=== PATIENT | female | born 1995 | race Caucasian/White ===

== ENCOUNTER → 2018-09-24 | Outpatient (CLI) | payer BC, SELFPAY ==
[2018-09-27 12:07] LABS: Alternaria alternata <0.10 kU/L (Class 0); Aspergillus fumigatus <0.10 kU/L (Class 0); Bahia Grass <0.10 kU/L (Class 0); Bermuda Grass <0.10 kU/L (Class 0); Bluegrass, Kentucky <0.10 kU/L (Class 0); Cat Hair/Dander, Standard <0.10 kU/L (Class 0); Cedar, Mountain <0.10 kU/L (Class 0); Cladosporium herbarum <0.10 kU/L (Class 0); Cockroach, American <0.10 kU/L (Class 0); D farinae Mite <0.10 kU/L (Class 0); D pteronyssinus <0.10 kU/L (Class 0); Dog Epithelia <0.10 kU/L (Class 0); Elm, American White <0.10 kU/L (Class 0); Hazelnut Tree <0.10 kU/L (Class 0); Hickory, White <0.10 kU/L (Class 0); Johnson Grass <0.10 kU/L (Class 0); Maple/Box Elder <0.10 kU/L (Class 0); Mucor racemosus <0.10 kU/L (Class 0); Mugwort <0.10 kU/L (Class 0); Mulberry, White <0.10 kU/L (Class 0); Oak, White <0.10 kU/L (Class 0); Penicillium chrysogen <0.10 kU/L (Class 0); Pigweed, Rough <0.10 kU/L (Class 0); Plantain, English <0.10 kU/L (Class 0); Ragweed, Short/Common <0.10 kU/L (Class 0); Sheep Sorrel(Dock) <0.10 kU/L (Class 0); Stemphylium herbarum <0.10 kU/L (Class 0); Sweet Gum <0.10 kU/L (Class 0); Sycamore, American <0.10 kU/L (Class 0)
[2018-09-27 13:33] LABS: Nettle <0.10 kU/L (Class 0)
== END | disposition home or self-care (01) ==
PROVIDERS: Family Provider Family Medicine; PCP Family Medicine; Referring Provider Internal Medicine Pulmonary Disease; Visit Provider Internal Medicine Pulmonary Disease
DX: J45.909 Unspecified asthma, uncomplicated (principal); R05 Cough
CPT/HCPCS: 36415; 86003

== ENCOUNTER → 2019-01-23 | Outpatient (CLI) | payer BC, SELFPAY ==
[2015-10-06 17:39] VITALS: BMI 24.3
[2019-01-23 16:17] LABS: Erythrocyte Sedimentation Rate 8 mm/hr (0-20)
[2019-01-26 20:14] LABS: Angiotensin Convert Enzyme 59 U/L (14-82)
== END | disposition home or self-care (01) ==
LOC: MTLAB 14:47
PROVIDERS: Family Provider Family Medicine; PCP Family Medicine; Referring Provider Internal Medicine Pulmonary Disease; Visit Provider Internal Medicine Pulmonary Disease
DX: R05 Cough (principal)
CPT/HCPCS: 36415; 82164; 85652

== ENCOUNTER → 2019-04-17 13:13 | Outpatient (CLI) | payer OTHER, SELFPAY ==
[2015-10-06 17:39] VITALS: BMI 24.3
== END ==
LOC: LABSPEC 13:15
PROVIDERS: PCP Family Medicine; Referring Provider Internal Medicine Pulmonary Disease; Visit Provider Internal Medicine Pulmonary Disease
DX: R04.2 Hemoptysis (principal)
CPT/HCPCS: 87070; 87205

== ENCOUNTER 2019-04-22 11:12 | Day surgery (SDC) | payer OTHER, SELFPAY ==
[2019-04-22] VITALS (8 sets, daily range): BP systolic 117–150; BP diastolic 69–96; PULSE 59–99; RESP 16; TEMP 36.3–36.7; O2SAT 95–100; BMI 28.6
--- NOTE | 2019-04-22 | LUNG_PTH ---
PATIENT: KASSIE HOLMAN LOC: EN U#:[id number] AGE/SX: 23/F ROOM: RE04/22/[address]: Dr. Marc Tabor MD : 1995 BED: DIS: 04/22/2019 SPEC #: [id number] RECD: 04/22/19 15:03 STATUS: DARLENE KAYLA #: [id number] LYLA: 04/22/19 00:[address]: Marc Tabor V DEPT: SURGICAL PATHOLOGY RECD BY: Sanjay Orlando ENTERED: 04/22/19 15:04 SP TYPE: LUNG BX OTHR DR: Dr. Maximo Steiner, DO Tissues: A - Bronchus of right lower lobe B - Bronchus of left upper lobe C - Lung, NOS D - Bronchus of left upper lobe Procedures: Surgery Specimen Level IV HEADER OPERATION: Bronchoscopy PRE-OP DIAGNOSIS: Cough, hemoptysis TISSUE SUBMITTED: A - RLL, B - RUL, C - Jenniffer, D - KANDY MICROSCOPIC DIAGNOSIS A. Right lower lobe of lung, biopsy: Fragments of bronchial and sub-bronchial tissue with minimal chronic inflammation. B. Right upper lobe of lung, biopsy: Fragments of bronchial and sub-bronchial tissue with minimal chronic inflammation. C. Jenniffer, biopsy: Fragments of benign squamous and respiratory epithelium and subepithelial tissue. D. Left upper lobe of lung, biopsy: Scant fragments of benign bronchial and sub-bronchial tissue. AM:neeru 04/23/19 COMMENT Please see corresponding cytology specimen ([id number]). MICROSCOPIC DESCRIPTION Slides are reviewed. GROSS DESCRIPTION A - Received in fixative is one container labeled with the patient's name and designated right lower lobe biopsy. The specimen consists of multiple irregular fragments of light cohen soft tissue that in aggregate measure 0.2 x 0.1 x <0.1 cm. The specimen is totally submitted in one cassette. B - Received in fixative is one container labeled with the patient's name and designated right upper lobe biopsy. The specimen consists of multiple irregular fragments of light cohen soft tissue that in aggregate measure 0.1 x 0.1 x <0.1 cm. The specimen is totally submitted in one cassette. C - Received in fixative is one container labeled with the patient's name and designated jenniffer biopsy. The specimen consists of one irregular fragment of light cohen soft tissue that measures 0.6 x 0.2 x <0.1 cm. The specimen is totally submitted in one cassette. D - Received in fixative is one container labeled with the patient's name and designated left lobe biopsy. The specimen consists of multiple irregular fragments of light cohen soft tissue that in aggregate measure 0.2 x 0.1 x <0.1 cm. The specimen is totally submitted in one cassette. / AM:neeru 04/22/19 TC:5 CPT: 45062 x4
--- NOTE | 2019-04-22 | FLU_PTH ---
PATIENT: KASSIE HOLMAN LOC: EN U#:[id number] AGE/SX: 23/ ROOM: RE04/22/[address]: Dr. Marc Tabor MD : 1995 BED: DIS: 04/22/2019 SPEC #: [id number] RECD: 04/22/19 15:03 STATUS: DARLENE KAYLA #: [id number] LYLA: 04/22/19 00:[address]: Marc Tabor V DEPT: CYTOLOGY RECD BY: Sanjay Orlando ENTERED: 04/22/19 15:03 SP TYPE: Fluid OTHR DR: Dr. Maximo Steiner DO Tissues: Lung, NOS Procedures: Special Stain Group II Surgery Specimen Level IV Cytospin Fluid HEADER OPERATION: Bronchoscopy (MAC) PRE-OP DIAGNOSIS: Cough, hemoptysis TISSUE SUBMITTED: BAL RUL DIAGNOSIS CYTOLOGY Bronchioalveolar lavage, right upper lobe of lung (cytospin and cell block): Negative for malignant cells. AM:neeru 04/23/19 COMMENT Please see corresponding surgical specimen ([id number]). CYTOLOGY STUDY Slides are reviewed. CYTOLOGY GROSS Received is 25 ml of red cloudy fluid labeled with the patient's name and and designated per the requisition as BAL RUL. Submitted for cytology preparation including cell block. / neeru 04/22/19 TC:5 CPT: 27036, 70000 ADDENDUM ADDENDUM ADDENDUM ADDENDUM ADDENDUM ADDENDUM ADDENDUM ADDENDUM ADDENDUM ADDENDUM 05/18/2019 10:01 ADDENDUM 05/18/2019 10:01 ADDENDUM 05/18/2019 10:01 ADDENDUM 05/18/2019 10:01 ADDENDUM 05/18/2019 10:01 This addendum is added to incorporate an outside pathology consultation report. The case was examined at [facility] (#[id number]) and the following diagnosis was rendered. Lung, right upper lobe, bronchoalveolar lavage: Negative for malignant cells. Please see complete above mentioned consultation report in EMR
[2019-04-22 11:40] LABS: Internal QC Validated? YES +Cl - CLEAR BKGD; Pregnancy, Urine Negative Negative
[2019-04-22] MEDS: Lactated Ringers 1,000 ML 100 ML IV (11:51)
--- NOTE | 2019-04-22 13:21 | OP.BRONCH_ITS ---
Patient Name: Rosy Quintana Procedure Date: 04/22/2019 12:24 PM Date of : 1995 Age: 23 Procedure: Bronchoscopy Indications: Hemoptysis Providers: Marc Tabor MD Referring MD: Maximo Steiner Medicines: Lidocaine 2% Nebulizer 2.5 mL, Lidocaine applied to nares and subglottic space Complications: No immediate complications Procedure: Pre-Anesthesia Assessment: - Pre-procedure physical examination revealed no contraindications to sedation. - ASA Grade Assessment: II - A patient with mild systemic disease. After I obtained informed consent, the scope was passed under direct vision. Throughout the procedure, the patient's blood pressure, pulse, and oxygen saturations were monitored continuously. The bronchoscope was introduced through the right nostril and advanced to the tracheobronchial tree of both lungs. Moderate Sedation: An independent trained observer was present and continuously monitored the patient. An independent trained observer was present and continuously monitored the patient. Findings: Bilateral Lung Abnormalities: Vascular mucosa was found throughout the tracheobronchial tree. Bronchoalveolar lavage was performed in the RUL anterior segment (B3) of the lung and sent for cell count and differential, bacterial, AFB and fungal analysis and aerobic culture. 80 mL of fluid were instilled. 30 mL were returned. The return was blood-tinged. Multiple specimens were obtained, and each sent for analysis. Endobronchial biopsies of a lesion were performed at the ignacia, in the right lower lobe, in the anterior segment of the right upper lobe and in the inferior lingula segment of the left upper lobe using a forceps and sent for histopathology examination. Five samples were obtained. Impression: - Hemoptysis - Vascular mucosa was visualized throughout the tracheobronchial tree. - Bronchoalveolar lavage was performed. - An endobronchial biopsy was performed. - The airway examination was normal. Recommendation: - Await test results. Procedure Code(s): --- Professional --- 38998, Bronchoscopy, rigid or flexible, including fluoroscopic guidance, when performed; with bronchial or endobronchial biopsy(s), single or multiple sites 12543, Bronchoscopy, rigid or flexible, including fluoroscopic guidance, when performed; with bronchial alveolar lavage Diagnosis Code(s): --- Professional --- R04.2, Hemoptysis CPT copyright 2017 [employer]. All rights reserved. The codes documented in this report are preliminary and upon medical laboratory manager review may be revised to meet current compliance requirements. MD Marc Nur MD 04/22/2019 1:21:01 PM This report has been signed electronically. Number of Addenda: 0 Note Initiated On: 04/22/2019 12:24 PM
[2019-04-22 13:29] LABS: Cytology, Body Fluid / CSF SEE PATHOLOGY REPORT
[2019-04-22 14:10] LABS: Source- Body Fluid BRONCHIAL LAVAGE
[2019-04-22 14:11] LABS: Appearance/Body Fluid SL CLDY; Color/Body Fluid COLORLESS
[2019-04-22 14:13] LABS: Red Cell Count/Body Fluid 1985 /mm3; White Blood Count/Body Fluid 25 /mm3
[2019-04-22 15:22] LABS: Macrophages 100 %
[2019-04-23 14:23] LABS: Pathologist Comment/Body Fluid Reviewed
== END 2019-04-22 15:11 | disposition home or self-care (01) ==
LOC: EN 11:12 → AC 11:14
PROVIDERS: Anesthesiology; PCP Family Medicine; Referring Provider Family Medicine; Visit Provider Internal Medicine Pulmonary Disease
PROC: 0BJ08ZZ Inspection of Tracheobronchial Tree, Via Natural or Artificial Opening Endoscopic (ICD-10-PCS; CPT 31622; principal; 2019-04-22 12:00)
DX: R04.2 Hemoptysis (principal); K21.9 Gastro-esophageal reflux disease without esophagitis; E04.1 Nontoxic single thyroid nodule; J45.901 Unspecified asthma with (acute) exacerbation; J30.89 Other allergic rhinitis; R91.8 Other nonspecific abnormal finding of lung field
CPT/HCPCS: 31624; 31625; 81025; 87015; 87070; 87116; 87205; 87206; 88108; 88305; 88313; 89050; J7120; J2405

== ENCOUNTER → 2020-04-21 13:54 | Outpatient (CLI) | payer OTHER, SELFPAY ==
[2019-04-22 11:41] VITALS: BMI 28.6
[2020-04-21 14:00] VITALS: BP 115/68; PULSE 82; RESP 16; TEMP 36.2; O2SAT 100; BMI 28.3
[2020-04-21] MEDS: Dextrose 5%-Lactated Ringers 1,000 ML 999 ML IV (14:11)
[2020-04-21] MEDS: 0.9% NaCl Peripheral Flush Adult/Peds IV (14:11)
[2020-04-21] MEDS: Ondansetron 4 MG/2 ML Vial IV (14:13)
[2020-04-21 15:32] VITALS: BP 107/60; PULSE 68; RESP 16; O2SAT 100
== END ==
LOC: MEDOUTP 13:54
PROVIDERS: PCP Family Medicine; Referring Provider Obstetrics & Gynecology; Visit Provider Obstetrics & Gynecology
DX: E86.0 Dehydration (principal)
CPT/HCPCS: 96365; 96366; 96375; A4216; J2405

== ENCOUNTER → 2020-05-04 16:26 | Outpatient (CLI) | payer OTHER, SELFPAY ==
[2020-05-04 09:06] VITALS: BMI 27.1
[2020-05-04 17:36] LABS: Amphetamine Urine VISTA NEGATIVE (<1000 ng/mL); Barbiturate Urine VISTA NEGATIVE (< 200 ng/mL); Benzodiazepine Urine VISTA NEGATIVE (< 200 ng/mL); Cocaine Urine VISTA NEGATIVE (< 300 ng/mL); Ecstacy Urine VISTA NEGATIVE (< 500 ng/mL); Methadone Urine VISTA NEGATIVE (< 300 ng/mL); PCP Urine VISTA NEGATIVE (< 25 ng/mL); THC Urine VISTA NEGATIVE (< 50 ng/mL); Vista UDS pH Range 5
[2020-05-07 03:06] LABS: Chlamydia By Nucleic Acid AMP Negative (Negative)
[2020-05-07 09:18] LABS: Gonococcus By Nucleic Acid AMP Negative (Negative)
== END ==
LOC: LABSPEC 16:27
PROVIDERS: PCP Family Medicine; Referring Provider Obstetrics & Gynecology; Visit Provider Obstetrics & Gynecology
DX: Z34.90 Encounter for supervision of normal pregnancy, unspecified, unspecified trimester (principal)
CPT/HCPCS: 80307; 87086; 87088; 87491; 87591

== ENCOUNTER → 2020-05-25 14:07 | Outpatient (CLI) | payer OTHER, SELFPAY ==
[2020-05-04 09:06] VITALS: BMI 27.1
[2020-05-25 14:49] LABS: Absolute Lymphocyte Count 1.12 X10^3/uL (0.83-4.51); Absolute Neutrophil Count 7.1 X10^3/uL (2.0-7.7); Basophil# 0.01 X10^3/uL; Basophil% 0.1 % (0-1); Eosinophil# 0.04 X10^3/uL; Eosinophils% 0.4 % (0-5); Hematocrit 35.7 % (37-47); Hemoglobin 11.9 g/dL (12.0-15.0); Lymphocyte # 1.12 X10^3/ul (4.0); Lymphocyte % 12.6 % (19-41); Mean Corp Hgb Conc 33.3 g/dL (32-36); Mean Corpuscular Hgb 28.3 pg (27.0-32.0); Mean Platelet Vol. 9.5 fl (6.2-12.0); Monocyte# 0.57 X10^3/uL; Monocyte% 6.4 % (0-10); NRBC Flagged by Analyzer 0 % (0-5); Neutrophil # 7.13 X10^3/uL (2.7-7.7); Neutrophil % 80.3 % (47-70); Platelet Count 350 K/mm3 (150-450); RBC Distribution Width CV 12.7 % (11.6-14.6); RBC Distribution Width SD 39.3 fl (35.1-43.9); White Blood Count 8.9 K/mm3 (4.4-11.0)
[2020-05-25 15:52] LABS: NATERA MAILED SPECIMEN
[2020-05-25 16:18] LABS: HIV - WCH Non-Reactive (Nonreactive); Hepatitis B Surface Antigen Non-Reactive (Nonreactive); Hepatitis C Antibody Non-Reactive (Nonreactive); Rubella IgG Reactive (Nonreactive)
== END ==
LOC: LAB 14:08
PROVIDERS: PCP Family Medicine; Visit Provider Obstetrics & Gynecology
DX: Z34.90 Encounter for supervision of normal pregnancy, unspecified, unspecified trimester (principal)
CPT/HCPCS: 85025; 86703; 86762; 86803; 86850; 86900; 86901; 87340

== ENCOUNTER → 2020-06-01 16:22 | Outpatient (CLI) | payer OTHER, SELFPAY ==
[2020-06-01 13:08] VITALS: BMI 27.5
[2020-06-01 17:41] LABS: Amphetamine Urine VISTA NEGATIVE (<1000 ng/mL); Barbiturate Urine VISTA NEGATIVE (< 200 ng/mL); Benzodiazepine Urine VISTA NEGATIVE (< 200 ng/mL); Cocaine Urine VISTA NEGATIVE (< 300 ng/mL); Ecstacy Urine VISTA NEGATIVE (< 500 ng/mL); Methadone Urine VISTA NEGATIVE (< 300 ng/mL); PCP Urine VISTA NEGATIVE (< 25 ng/mL); THC Urine VISTA NEGATIVE (< 50 ng/mL); Vista UDS pH Range 6
== END ==
PROVIDERS: PCP Family Medicine; Referring Provider Obstetrics & Gynecology; Visit Provider Obstetrics & Gynecology
DX: Z34.90 Encounter for supervision of normal pregnancy, unspecified, unspecified trimester (principal); E86.0 Dehydration
CPT/HCPCS: 80307; 87086; 87088

== ENCOUNTER → 2020-06-21 15:12 | Outpatient (CLI) | payer OTHER, MEDICAID, SELFPAY ==
[2020-06-16 10:45] VITALS: BMI 28.0
[2020-06-21] MEDS: Dextrose 5%-Lactated Ringers 1,000 ML 999 ML IV (15:27)
[2020-06-21] MEDS: Ondansetron 4 MG/2 ML Vial IV (15:30)
[2020-06-21] MEDS: 0.9% NaCl Peripheral Flush Adult/Peds IV (15:32)
[2020-06-21 15:33] VITALS: BP 111/72; PULSE 80; RESP 16; TEMP 36.4; O2SAT 99; BMI 28.0
[2020-06-21 16:34] VITALS: BP 116/70; PULSE 85
== END ==
PROVIDERS: PCP Family Medicine; Visit Provider Obstetrics & Gynecology
DX: E86.0 Dehydration (principal)
CPT/HCPCS: 96365; 96375; A4216; J2405

== ENCOUNTER 2020-06-29 12:03 | Outpatient (RCR) | payer OTHER, MEDICAID, SELFPAY ==
[2020-06-16 10:45] VITALS: BMI 28.0
[2020-06-29 11:18] VITALS: BMI 29.2
== END 2020-07-08 23:59 ==
LOC: NS 12:03
PROVIDERS: PCP Family Medicine; Visit Provider Nurse Practitioner Women's Health
DX: Z71.3 Dietary counseling and surveillance (principal); O99.280 Endocrine, nutritional and metabolic diseases complicating pregnancy, unspecified trimester; E16.2 Hypoglycemia, unspecified; Z3A.00 Weeks of gestation of pregnancy not specified
CPT/HCPCS: 97802

== ENCOUNTER → 2020-07-04 16:28 | Outpatient (CLI) | payer OTHER, MEDICAID, SELFPAY ==
[2020-07-04 13:24] VITALS: BMI 28.7
== END ==
PROVIDERS: PCP Family Medicine; Referring Provider Obstetrics & Gynecology; Visit Provider Obstetrics & Gynecology
DX: O26.899 Other specified pregnancy related conditions, unspecified trimester (principal); R10.2 Pelvic and perineal pain; E86.0 Dehydration; Z3A.00 Weeks of gestation of pregnancy not specified
CPT/HCPCS: 87086; 87088

== ENCOUNTER 2020-07-20 11:45 | Outpatient (RCR) | payer OTHER, MEDICAID, SELFPAY ==
[2020-07-04 13:24] VITALS: BMI 28.7
== END 2020-08-08 23:59 ==
LOC: NS 11:45
PROVIDERS: PCP Family Medicine; Visit Provider Nurse Practitioner Women's Health
DX: Z71.3 Dietary counseling and surveillance (principal); O99.280 Endocrine, nutritional and metabolic diseases complicating pregnancy, unspecified trimester; E16.2 Hypoglycemia, unspecified; Z3A.00 Weeks of gestation of pregnancy not specified
CPT/HCPCS: 97803

== ENCOUNTER → 2020-08-02 16:22 | Outpatient (CLI) | payer OTHER, MEDICAID, SELFPAY ==
[2020-07-25 13:04] VITALS: BMI 28.7
== END ==
PROVIDERS: PCP Family Medicine; Visit Provider Obstetrics & Gynecology
DX: R30.0 Dysuria (principal)
CPT/HCPCS: 87086; 87088

== ENCOUNTER 2020-09-07 | Outpatient (CLI) | payer OTHER, MEDICAID, SELFPAY ==
[2020-08-22 11:12] VITALS: BMI 28.7
[2020-09-07] VITALS (53 sets, daily range): BP systolic 126–129; BP diastolic 75–76; PULSE 79–245; TEMP 37.3; O2SAT 85–100; BMI 31.4
[2020-09-07 00:44] LABS: Color, Urine Yellow (Yellow); Glucose, Dipstick Normal (Normal); Ketone-Dipstick Negative (Negative); Leukocyte Esterase-Dipstick Negative /ul (Negative); Nitrite-Dipstick Negative (Negative); Occult Blood-Urine Negative /ul (Negative); Protein-Dipstick Negative (Negative); Urine Bilirubin Dipstick Negative (Negative); Urine Clarity Clear (Clear); Urine Urobilinogen Normal (Normal)
[2020-09-07 02:07] LABS: Fetal Fibronectin Negative
[2020-09-07] MEDS: Lactated Ringers 1,000 ML 999 ML IV (02:35)
[2020-09-07] MEDS: Terbutaline 1 MG/ML Vial 0.25 MG SC (02:42)
[2020-09-07] MEDS: Lactated Ringers 1,000 ML 100 ML IV (04:15)
[2020-09-07 04:20] LABS: Amphetamine Urine VISTA NEGATIVE (<1000 ng/mL); Barbiturate Urine VISTA NEGATIVE (< 200 ng/mL); Benzodiazepine Urine VISTA NEGATIVE (< 200 ng/mL); Cocaine Urine VISTA NEGATIVE (< 300 ng/mL); Ecstacy Urine VISTA NEGATIVE (< 500 ng/mL); Methadone Urine VISTA NEGATIVE (< 300 ng/mL); PCP Urine VISTA NEGATIVE (< 25 ng/mL); THC Urine VISTA NEGATIVE (< 50 ng/mL); Vista UDS pH Range 7
[2020-09-07] MEDS: Morphine 4 MG/ML Syringe 6 MG IV (04:38)
[2020-09-07] MEDS: Ondansetron 4 MG/2 ML Vial IV (04:38)
--- NOTE | 2020-09-08 10:45 | OB.TRI.HP_ITS ---
HPI - General HPI Narrative KASSIE HOLMAN, is a 25 F who presents with contractions increasing in severity, no vb lof admits good fm. some were more painful than others. no infectious symptoms no recent intercourse. Maternal Data Information FABRIZIO Calculator Estimated Delivery Date Method Current WG Current Estimate 12/13/20 LMP (Certain) 26w 2d # 2 PFSH PFSH Medical History (Updated 09/08/20 @ 10:[address] Nevaeh Montague MD) Chronic bronchitis Chronic cough Chronic shortness of breath H/O miscarriage, currently (~10/2019) Vocal cord dysfunction Home Medications albuterol sulfate 2 puff INHALATION Q4H PRN PRN 04/20/19 [History Last Taken 08/15/20 08:00] montelukast 10 mg PO DAILY 04/20/19 [History Last Taken Unknown] promethazine 12.5 mg rectal suppository 12.5 mg RC Q6H PRN #12 ea 04/21/20 [Rx Last Taken Unknown] promethazine 12.5 mg tablet 12.5 mg PO TID PRN #60 tab 04/21/20 [Rx Last Taken 09/04/20 08:00] multivitamin no.47-iron fum 27 mg-folate no.1 1 mg-dha 300 mg capsule 1 cap PO DAILY 04/26/20 [History Last Taken 09/06/20 12:00] ondansetron HCl 4 mg tablet 4 mg PO Q4H #60 tablet 06/02/20 [Rx Last Taken 09/06/20 08:00] blood sugar diagnostic #100 each 06/29/20 [Rx Last Taken Unknown] blood-glucose meter #1 each 06/29/20 [Rx Last Taken Unknown] lancets 33 gauge #100 each 06/29/20 [Rx Last Taken Unknown] sertraline [Zoloft] 50 mg PO DAILY 09/07/20 [History Last Taken 09/06/20 12:00] Allergy/AdvReac Type Severity Reaction Status Date / Time No Known Allergies Allergy Verified 09/07/20 00:10 Family History Father Heart disease Surgical History Carpal tunnel syndrome History of bronchoscopy Social History adopted: No household members: significant other housing: house current occupational status: employed and student current occupation: [employer]; [employer]; 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 Date Name GA/Weeks Outcome Route Bth Weight Gen Labor Lgth Anesthesia Del Locatn Provider FOB Unknown 10/2019 SAB Delivery Date: ? chemical Arely Zhong Visit Details Expected Delivery Route/Plan Labor Preferences- CB/BF classes: [] labor support person: [] labor intervention preferences: [] pain management options preferred: [] cut cord/dad catch: [] : [] PP control planned: [] discussed possible routes of delivery and associated risks: [] special requests: [] Plans flu vaccine: given tdap vaccine: [] rhogam: [] LARC form signed: [] Problem list reviewed and updated with the most current plan of care details and appropriate orders placed. Relevant counseling for the gestational age provided. Continue routine care and follow up unless otherwise noted in visit notes/problem list details OB Flowsheet Initial Weight: 150 lb Date -?-?-?-?-?-?-?-?-?-?-?-?- EGA Weight BP Urine Prot -?-?-?-?-?-?-?-?-?-?-?-?- Glucose FHR FuHt Pres Dilation -?-?-?-?-?-?-?-?-?-?-?-?- Effaced St Visit Note 05/04/20 -?-?-?-?-?-?-?-?-?-?-?-?- 8w 1d 153 lb 6 oz (+3 lb 6 oz) 120/84 -?-?-?-?-?-?-?-?-?-?-?-?- A 170 175 -?-?-?-?-?-?-?-?-?-?-?-?- B A -?-?-?-?-?-?-?-?-?-?-?-?- B -?-?-?-?-?-?-?-?-?-?-?-?- A -?-?-?-?-?-?-?-?-?-?-?-?- B A GP - CRLs 14 and 18mm consistent with LMP. US shows twin peak sign suggesting di-di twin gestation GP - CRLs 14 and 18mm consis tent with LMP. US shows twin peak sign suggesting di-di twin gestation. FHR 170/175 -?-?-?-?-?-?-?-?-?-?-?-?- B 06/01/20 -?-?-?-?-?-?-?-?-?-?-?-?- 12w 1d 155 lb 6 oz (+5 lb 6 oz) 130/80 Negative -?-?-?-?-?-?-?-?-?-?-?-?- Negative A 160 -?-?-?-?-?-?-?-?-?-?-?-?- B 160 A -?-?-?-?-?-?-?-?-?-?-?-?- B -?-?-?-?-?-?-?-?-?-?-?-?- A -?-?-?-?-?-?-?-?-?-?-?-?- B A SM- no vb crmapi ng still nauseated -?-?-?-?-?-?-?-?-?-?-?-?- B 06/16/20 -?-?-?-?-?-?-?-?-?-?-?-?- 14w 2d 158 lb 6 oz (+8 lb 6 oz) 118/60 Negative -?-?-?-?-?-?-?-?-?-?-?-?- Negative A 160 -?-?-?-?-?-?-?-?-?-?-?-?- B 160 A -?-?-?-?-?-?-?-?-?-?-?-?- B -?-?-?-?-?-?-?-?-?-?-?-?- A -?-?-?-?-?-?-?-?-?-?-?-?- B A MH-work in for e pisodes of feeling flushed, dizziness. Better after eats but still struggles with nausea/improving. Reviewed small frequent meals. Refer to clinical rn manager. MH-work in for episodes of f eeling flushed, dizziness. Better after eats but still struggles with nausea/improving. Reviewed small frequent meals. Refer to clinical rn manager. More anxiety-Rx zoloft -?-?-?-?-?-?-?-?-?-?-?-?- B 06/29/20 -?-?-?-?-?-?-?-?-?-?-?-?- 16w 1d 165 lb (+15 lb) 126/82 Negative -?-?-?-?-?-?-?-?-?-?-?-?- Negative A 145 -?-?-?-?-?-?-?-?-?-?-?-?- B 160 A -?-?-?-?-?-?-?-?-?-?-?-?- B -?-?-?-?-?-?-?-?-?-?-?-?- A -?-?-?-?-?-?-?-?-?-?-?-?- B A GP - no cramping or bleeding. Denies complaints. -?-?-?-?-?-?-?-?-?-?-?-?- B 07/04/20 -?-?-?-?-?-?-?-?-?-?-?-?- 16w 6d 162 lb (+12 lb) 110/80 -?-?-?-?-?-?-?-?-?-?-?-?- A 155 -?-?-?-?-?-?-?-?-?-?-?-?- B 150 A -?-?-?-?-?-?-?-?-?-?-?-?- B 0 -?-?-?-?-?-?-?-?-?-?-?-?- A -?-?-?-?-?-?-?-?-?-?-?-?- B A SM- viral GI sym ptosm with nausea vomitijng, cramping no vb lof -?-?-?-?-?-?-?-?-?-?-?-?- B 07/25/20 -?-?-?-?-?--?-?-?-?-?-?-?- 19w 6d 169 lb 6 oz (+19 lb 6 oz) 124/84 118/84 Negative -?-?-?-?-?-?-?-?-?-?-?-?- Negative A 147 -?-?-?-?-?-?-?-?-?-?-?-?- B 150 A Breech -?-?-?-?-?-?-?-?-?-?-?-?- B Transverse -?-?-?-?-?-?-?-?-?-?-?-?- A -?-?-?-?-?-?-?-?-?-?-?-?- B A GP - no LOF, VB, dFM, ctx. FOB not in the picture, but may be there for delivery. Struggling with finances -?-?-?-?-?-?-?-?-?-?-?-?- B 08/15/20 -?-?-?-?-?-?-?-?-?-?-?-?- 22w 6d 171 lb 6 oz (+21 lb 6 oz) 110/78 Negative -?-?-?-?-?-?-?-?-?-?-?-?- Negative A 135 -?-?-?-?-?-?-?-?-?-?-?-?- B 145 A Cephalic -?-?-?-?--?-?-?-?-?-?-?-?- B Breech 0 -?-?-?-?-?-?-?-?-?-?-?-?- A -?-?-?-?-?-?-?-?-?-?-?-?- B A GP - no LOF, VB, DFM. Seen at [place] last week due to contractions. Still cramping. Cervix closed. Encouraged increased PO fluids. -?-?-?-?-?-?-?-?-?-?-?-?- B 08/22/20 -?-?-?-?-?-?-?-?-?-?-?-?- 23w 6d 169 lb (+19 lb) 106/62 Negative -?-?-?-?-?-?-?-?-?-?-?-?- Negative A 150 -?-?-?-?-?-?-?-?-?-?-?-?- B 140 A -?-?-?-?-?-?-?-?-?-?-?-?- B -?-?-?-?--?-?-?-?-?-?-?-?- A -?-?-?-?-?-?-?-?-?-?-?-?- B A SM- no vb lof go od fm no regular ctx -?-?-?-?-?-?-?-?-?-?-?-?- B 09/07/20 -?-?-?-?-?-?-?-?-?-?-?-?- 26w 1d 177 lb 11.081 oz (+27 lb 11.081 oz) 126/76 129/75 Negative mg/dl (Nega tive) -?-?-?-?-?-?-?-?-?-?-?-?- A 140 -?-?-?-?-?-?-?-?-?-?-?-?- B 150 A -?-?-?-?-?-?-?-?-?-?-?-?- B 0 -?-?-?-?-?-?-?-?-?-?-?-?- A -?-?-?-?-?-?-?-?-?-?-?-?- B A -?-?-?-?-?-?-?-?-?-?-?-?- B ROS Constitutional Constitutional: Reports systems reviewed and no addt'l complaints, except as documented Gastrointestinal Gastrointestinal: Reports as per HPI Physical Exam Const alert, oriented x3 and no apparent distress HEENT Head and Scalp: normocephalic and atraumatic Neck full ROM and no lymphadenopathy Chest inspection of chest normal Resp normal respiratory effort GI GI Narrative: gravid, abdomen nontender, AGA Manual OB Exam: dilated, effaced and station NST FHR Rate Baby A Baseline: 140 Variability:: Moderate Decelerations:: None FHR Category:: Category I Assessment & Plan (1) Threatened labor: COMMENT: ffn neg 09/07, cervix closed in triage (2) Rh negative status during : QUALIFIERS: Trimester: second trimester Qualified Code(s): O26.892 - Other specified related conditions, second trimester; Z67.91 - Unspecified blood type, Rh negative COMMENT: rhogam PRN and 28 weeks (3) Dichorionic diamniotic twin gestation: QUALIFIERS: Trimester: second trimester Qualified Code(s): O30.042 - Twin , dichorionic/diamniotic, second trimester COMMENT: Growths q4w in third trimester confirmed Di at 4/5 MFM US, nl NT for both, growth @24 wk nl (4) Anxiety: COMMENT: currently in nursing school, working 2 jobs- feels that her anxiety has increased, discussed at [facility]. Feels like situational. 06/16 start zoloft (5) Supervision of normal : QUALIFIERS: Normal : normal first Trimester: second trimester Qualified Code(s): Z34.02 - Encounter for supe rvision of normal first , second trimester COMMENT: PRR (RPR) FABRIZIO 12/13/20 BF: Scott (6) : QUALIFIERS: Weeks of gestation: 23 weeks Qualified Code(s): Z3A.23 - 23 weeks gestation of COMMENT: desires genetic testing, declines carrier PLAN: ptl precautions fu in office as scheduled Charges/Coding Multi Select Codes Visit Charges Office Visit/Consults: 42668 OV L3 Est
== END 2020-09-07 06:15 | disposition home or self-care (01) ==
LOC: WPOUT 00:06 → WP 00:06
PROVIDERS: PCP Family Medicine; Visit Provider Obstetrics & Gynecology
DX: O47.02 False labor before 37 completed weeks of gestation, second trimester (principal); O99.342 Other mental disorders complicating pregnancy, second trimester; F41.9 Anxiety disorder, unspecified; Z3A.26 26 weeks gestation of pregnancy; Z67.91 Unspecified blood type, Rh negative; Z79.899 Other long term (current) drug therapy
CPT/HCPCS: 96365; 96366 ×2; 96375 ×2; 59025; 59050; 80307; 81002; 82731; 96372; 99218; J7120; G0378; J2405

== ENCOUNTER 2020-09-09 11:35 | Outpatient (CLI) | payer OTHER, MEDICAID, SELFPAY ==
[2020-09-09] VITALS (33 sets, daily range): BP systolic 110–127; BP diastolic 57–77; PULSE 81–128; RESP 14–16; TEMP 35.9–37.1; O2SAT 95–100; BMI 31.2; BMI 31.4
--- NOTE | 2020-09-09 11:45 | US_ITS ---
STUDY: FIRST TRIMESTER OBSTETRICAL ULTRASOUND REASON FOR EXAM: Female, 25 years old cervical length -- to be done on wp unit LMP: 03/08/2020. TECHNIQUE: Transvaginal TECHNICAL QUALITY: Adequate. PRIOR ULTRASOUND: None. FINDINGS: Transvaginal examination was performed for measuring the cervix. The cervical length is 3.4 cm. IMPRESSION: Cervical length measures 3.4 cm. Electronically Signed: Dmitri Hernandez MD at 13:27 EDT , Service support , STUDY: SECOND AND THIRD TRIMESTER OBSTETRICAL ULTRASOUND - TWIN REASON FOR EXAM: Female, 25 years old. LMP: 03/08/2020. cervical length -- to be done on wp unit TECHNIQUE: Transabdominal TECHNICAL QUALITY: Adequate. COMPARISON: None. FINDINGS: The uterine wall is normal. There is a competent closed cervical os. The cervix measures 3.4 cm in length. The bilateral adnexal regions are normal. Fetus A demonstrates cardiac activity with a heart rate of 135 bpm. Fetus ?A? is in a breech presentation. Fetus B demonstrates cardiac activity with a heart rate of 134 bpm. Fetus B is in a breech presentation. Age by LMP: 26 weeks, 3 days. FABRIZIO by LMP: 12/13/2020. Amniotic fluid is normal. US/Transvaginal w/Preg US IMPRESSION: Live intrauterine twin gestation. Normal amniotic fluid. The cervical length measures 3.4 cm. Electronically Signed: Dmitri Hernandez MD at 13:33 EDT , Service support ,
[2020-09-09] MEDS: Betamethasone/Betamethasone 30 MG/5 ML Vial 12 MG IM (12:36)
[2020-09-09] MEDS: Lactated Ringers 1,000 ML 999 ML IV ×2 (12:37→13:39)
--- NOTE | 2020-09-09 14:22 | OB.TRI.HP_ITS ---
HPI - General HPI Narrative KASSIE HOLMAN, is a 25 F at 03/06 who presents with contractions. Patient was seen in triage earlier this week for contractions, but was found to be closed and was sent home. Was seen in the office today and her cervix was found to be ftp/50/-2. Sent to triage where she was given IV fluids, but contractions became more frequent and painful. Maternal Data Information FABRIZIO Calculator Estimated Delivery Date Method Current WG Current Estimate 12/13/20 LMP (Certain) 26w 3d # 2 PFSH PFSH Medical History (Updated 09/09/20 @ 14:[address] Ethel Moreno MD) Chronic bronchitis Chronic cough Chronic shortness of breath H/O miscarriage, currently (~10/2019) Vocal cord dysfunction Home Medications albuterol sulfate 2 puff INHALATION Q4H PRN PRN 04/20/19 [History Last Taken 08/15/20 08:00] montelukast 10 mg PO DAILY 04/20/19 [History Last Taken Unknown] promethazine 12.5 mg rectal suppository 12.5 mg RC Q6H PRN #12 ea 04/21/20 [Rx Last Taken Unknown] promethazine 12.5 mg tablet 12.5 mg PO TID PRN #60 tab 04/21/20 [Rx Last Taken 09/04/20 08:00] multivitamin no.47-iron fum 27 mg-folate no.1 1 mg-dha 300 mg capsule 1 cap PO DAILY 04/26/20 [History Last Taken 09/06/20 12:00] ondansetron HCl 4 mg tablet 4 mg PO Q4H #60 tablet 06/02/20 [Rx Last Taken 09/06/20 08:00] blood sugar diagnostic #100 each 06/29/20 [Rx Last Taken Unknown] blood-glucose meter #1 each 06/29/20 [Rx Last Taken Unknown] lancets 33 gauge #100 each 06/29/20 [Rx Last Taken Unknown] sertraline [Zoloft] 50 mg PO DAILY 09/07/20 [History Last Taken 09/06/20 12:00] Allergy/AdvReac Type Severity Reaction Status Date / Time No Known Allergies Allergy Verified 09/09/20 10:49 Family History Father Heart disease Surgical History Carpal tunnel syndrome History of bronchoscopy Social History adopted: No household members: significant other housing: house current occupational status: employed and student current occupation: [employer]; 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 Date Name GA/Weeks Outcome Route Bth Weight [facility] Delivery Date: ? chemical Arely Zhong Visit Details Expected Delivery Route/Plan Labor Preferences- CB/BF classes: [] labor support person: [] labor intervention preferences: [] pain management options preferred: [] cut cord/dad catch: [] : [] PP control planned: [] discussed possible routes of delivery and associated risks: [] special requests: [] Plans flu vaccine: given tdap vaccine: [] rhogam: [] LARC form signed: [] Problem list reviewed and updated with the most current plan of care details and appropriate orders placed. Relevant counseling for the gestational age provided. Continue routine care and follow up unless otherwise noted in visit notes/problem list details OB Flowsheet Initial Weight: 150 lb Date -?-?-?-?-?-?-?-?-?-?-?-?- EGA Weight BP Urine Prot -?-?-?-?-?-?-?-?-?-?-?-?- Glucose FHR FuHt Pres Dilation -?-?-?-?-?-?-?-?-?-?-?-?- Effaced St Visit Note 05/04/20 -?-?-?-?-?-?-?-?-?-?-?-?- 8w 1d 153 lb 6 oz (+3 lb 6 oz) 120/84 -?-?-?-?-?-?-?-?-?-?-?-?- A 170 175 -?-?-?-?-?-?-?-?-?-?-?-?- B A -?-?-?-?-?-?-?-?-?-?-?-?- B -?-?-?-?-?-?-?-?-?-?-?-?- A -?-?-?-?-?-?-?-?-?-?-?-?- B A GP - CRLs 14 and 18mm consistent with LMP. US shows twin peak sign suggesting di-di twin gestation GP - CRLs 14 and 18mm consis tent with LMP. US shows twin peak sign suggesting di-di twin gestation. FHR 170/175 -?-?-?-?-?-?-?-?-?-?-?-?- B 06/01/20 -?-?-?-?-?-?-?-?-?-?-?-?- 12w 1d 155 lb 6 oz (+5 lb 6 oz) 130/80 Negative -?-?-?-?-?-?-?-?-?-?-?-?- Negative A 160 -?-?-?-?-?-?-?-?-?-?-?-?- B 160 A -?-?-?-?-?-?-?-?-?-?-?-?- B -?-?-?-?-?-?-?-?-?-?-?-?- A -?-?-?-?-?-?-?-?-?-?-?-?- B A SM- no vb crmapi ng still nauseated -?-?-?-?-?-?-?-?-?-?-?-?- B 06/16/20 -?-?-?-?-?-?-?-?-?-?-?-?- 14w 2d 158 lb 6 oz (+8 lb 6 oz) 118/60 Negative -?-?-?-?-?-?-?-?-?-?-?-?- Negative A 160 -?-?-?-?-?-?-?-?-?-?-?-?- B 160 A -?-?-?-?-?-?-?-?-?-?-?-?- B -?-?-?-?-?-?-?-?-?-?-?-?- A -?-?-?-?-?-?-?-?-?-?-?-?- B A MH-work in for e pisodes of feeling flushed, dizziness. Better after eats but still struggles with nausea/improving. Reviewed small frequent meals. Refer to development analyst. MH-work in for episodes of f eeling flushed, dizziness. Better after eats but still struggles with nausea/improving. Reviewed small frequent meals. Refer to development analyst. More anxiety-Rx zoloft -?-?-?-?-?-?-?-?-?-?-?-?- B 06/29/20 -?-?-?-?-?-?-?-?-?-?-?-?- 16w 1d 165 lb (+15 lb) 126/82 Negative -?-?-?-?-?-?-?-?-?-?-?-?- Negative A 145 -?-?-?-?-?-?--?-?-?-?-?-?- B 160 A -?-?-?-?-?-?-?-?-?-?-?-?- B -?-?-?-?-?-?-?-?-?-?-?-?- A -?-?-?-?-?-?-?-?-?-?-?-?- B A GP - no cramping or bleeding. Denies complaints. -?-?-?-?-?-?-?-?-?-?-?-?- B 07/04/20 -?-?-?-?-?-?-?-?-?-?-?-?- 16w 6d 162 lb (+12 lb) 110/80 -?-?-?-?-?-?-?-?-?-?--?-?- A 155 -?-?-?-?-?-?-?-?-?-?-?-?- B 150 A -?-?-?-?-?-?-?-?-?-?-?-?- B 0 -?-?-?-?-?-?-?-?-?-?-?-?- A -?-?-?-?-?-?-?-?-?-?-?-?- B A SM- viral GI sym ptosm with nausea vomitijng, cramping no vb lof -?-?-?-?-?-?-?-?-?-?-?-?- B 07/25/20 -?-?-?-?-?-?-?-?-?-?-?-?- 19w 6d 169 lb 6 oz (+19 lb 6 oz) 124/84 118/84 Negative -?-?-?-?-?-?-?-?-?-?-?-?- Negative A 147 -?-?-?-?-?-?-?-?-?-?-?-?- B 150 A Breech -?--?-?-?-?-?-?-?-?-?-?-?- B Transverse -?-?-?-?-?-?-?-?-?-?-?-?- A -?-?-?-?-?-?-?-?-?-?-?-?- B A GP - no LOF, VB, dFM, ctx. FOB not in the picture, but may be there for delivery. Struggling with finances -?-?-?-?-?-?-?-?-?-?-?-?- B 08/15/20 -?-?-?-?-?-?-?-?-?-?-?-?- 22w 6d 171 lb 6 oz (+21 lb 6 oz) 110/78 Negative -?-?-?-?-?-?-?-?-?-?-?-?- Negative A 135 -?-?-?-?-?-?-?-?-?-?-?-?- B 145 A Cephalic -?-?-?-?-?-?-?-?-?-?-?-?- B Breech 0 -?-?-?-?-?-?-?-?-?-?-?-?- A -?-?-?-?-?-?-?-?-?-?-?-?- B A GP - no LOF, VB, DFM. Seen at [place] last week due to contractions. Still cramping. Cervix closed. Encouraged increased PO fluids. -?-?-?-?-?-?-?-?-?-?-?-?- B 08/22/20 -?-?-?-?-?-?-?-?-?-?-?-?- 23w 6d 169 lb (+19 lb) 106/62 Negative -?-?-?-?-?--?-?-?-?-?-?-?- Negative A 150 -?-?-?-?-?-?-?-?-?-?-?-?- B 140 A -?-?-?-?-?-?-?-?-?-?-?-?- B -?-?-?-?-?-?-?-?-?-?-?-?- A -?-?-?--?-?-?-?-?-?-?-?-?- B A SM- no vb lof go od fm no regular ctx -?-?-?-?-?-?-?-?-?-?-?-?- B 09/07/20 -?-?-?-?-?-?-?-?-?-?-?-?- 26w 1d 177 lb 11.081 oz (+27 lb 11.081 oz) 126/76 129/75 Negative mg/dl (Nega tive) -?-?-?-?-?-?-?-?-?-?-?-?- A 140 -?-?-?-?-?-?-?-?-?-?-?-?- B 150 A -?-?-?-?-?--?-?-?-?-?-?-?- B 0 -?-?-?-?-?-?-?-?-?-?-?-?- A -?-?-?-?-?-?-?-?-?-?-?-?- B A -?-?-?-?-?-?-?-?-?-?-?-?- B 09/09/20 -?-?-?-?-?-?-?-?-?-?-?-?- 26w 3d 176 lb 4 oz (+26 lb 4 oz) 124/80 Negative -?-?-?-?-?-?-?-?-?-?-?-?- Negative A 135 -?-?-?-?-?-?-?-?-?-?-?-?- B 136 A Breech -?-?-?-?-?-?-?-?-?-?-?-?- B Transverse 1 -?-?-?-?-?-?-?-?-?-?-?-?- 50 A -2 -?-?-?-?-?-?-?-?-?-?-?-?- B A GP - work in for contractions. Seen in triage earlier this week but cx was closed and FFN negative. Sent to triage for BMZ, CL, and IV fluids -?-?-?-?-?-?-?-?-?-?-?-?- B 09/09/20 -?-?-?-?-?-?-?-?-?-?-?-?- 26w 3d 110/72 115/66 -?-?-?-?-?-?-?-?-?-?-?-?- A -?-?-?-?-?-?-?-?-?-?-?-?- B A -?-?-?-?-?-?-?-?-?-?-?-?- B -?-?-?-?-?-?-?-?-?-?-?--?- A -?-?-?-?-?-?-?-?-?-?-?-?- B A -?-?-?-?-?-?-?-?-?-?-?-?- B ROS Eyes Eyes: Reports systems reviewed and no addt'l complaints, except as documented ENT HEENT: Reports systems reviewed and no addt'l complaints, except as documented Cardiovascular Cardiovascular: Reports systems reviewed and no addt'l complaints, except as documented Respiratory/Chest Respiratory/Chest: Reports systems reviewed and no addt'l complaints, except as documented Gastrointestinal Gastrointestinal: Reports systems reviewed and no addt'l complaints, except as documented Genitourinary Genitourinary: Reports systems reviewed and no addt'l complaints, except as documented Musculoskeletal Musculoskeletal: Reports systems reviewed and no addt'l complaints, except as documented Integumentary Integumentary: Reports systems reviewed and no addt'l complaints, except as documented Neurologic Neurologic: Reports systems reviewed and no addt'l complaints, except as documented Psychiatric Psychiatric: Reports systems reviewed and no addt'l complaints, except as documented Endocrine Endocrinology: Reports systems reviewed and no addt'l complaints, except as documented Hematologic/Lymphatic Hematologic/Lymphatic: Reports systems reviewed and no addt'l complaints, except as documented Allergic/Immunologic Allergic/Immunologic: Reports systems reviewed and no addt'l complaints, except as documented Physical Exam Const alert, oriented x3, no apparent distress, average body habitus, healthy appearing and well nourished HEENT normocephalic and moist oral mucous membranes Head and Scalp: atraumatic Eyes PERRL and EOMs intact bilaterally Neck full ROM Resp normal respiratory effort, no retractions and no use of accessory muscles Cardio regular rate and regular rhythm GI soft to palpation, non-tender and non-distended Extremity normal to inspection and full ROM Skin no rashes or lesions noted Neuro no focal motor deficits and no sensory deficits noted Psych mental status grossly normal, affect normal, speech normal and activity/motor behavior normal NST FHR Rate Baby A Baseline: 130 Variability:: Moderate Accelerations:: 15 x 15 Decelerations:: None NST Reactive:: Yes Uterine Activity:: q2-3 min FHR Rate Baby B Baseline: 140 Variability:: Moderate Accelerations:: 15 x 15 Decelerations:: None NST Reactive:: Yes FHR Category:: Category I Assessment & Plan (1) labor: PLAN: Patient is a at 03/06 who presents with contractions and was found to be in labor Di-Di twins in breech/transverse presentation Patient not max every 2 to 3 minutes and uncomfortable with contractions May change from fingertip in the office to 1 cm Betamethasone administered for lung maturity Magnesium sulfate started for neuro protection Indomethacin ordered for toco lysis Penicillin started for GBS unknown-GBS ordered CBC, type and screen, and coags ordered Plan for transport to [facility] for labor Charges/Coding Multi Select Codes Visit Charges Office Visit/Consults: 07130 OV L4 Est Urinary/Genital Urinary/Genital CPT Codes: 83861-61 non-stress test Interp
[2020-09-09] MEDS: Magnesium Sulfate 4gm/100mL 4 GM/100 ML IV.SOLN. IV (14:29)
[2020-09-09] MEDS: Indomethacin 25 MG Capsule 50 MG PO (14:42)
[2020-09-09] MEDS: Magnesium Sulfate 4gm/100mL 2 GM/50 ML IV.SOLN. IV (14:46)
[2020-09-09] MEDS: Magnesium Sulfate 20 GM/500 ML BAG IV (14:59)
[2020-09-09 15:13] LABS: Absolute Neutrophil Count 8.9 X10^3/uL (2.0-7.7); Basophil# 0.03 X10^3/uL; Basophil% 0.2 % (0-1); Eosinophil# 0.41 X10^3/uL; Eosinophils% 3.2 % (0-5); Hematocrit 31.9 % (37-47); Hemoglobin 10.8 g/dL (12.0-15.0); Lymphocyte % 16.4 % (19-41); Mean Corp Hgb Conc 33.9 g/dL (32-36); Mean Corpuscular Hgb 28.1 pg (27.0-32.0); Mean Corpuscular Volume 82.9 fL (81-99); Mean Platelet Vol. 9.8 fl (6.2-12.0); Monocyte# 1.27 X10^3/uL; Monocyte% 9.9 % (0-10); NRBC Flagged by Analyzer 0 % (0-5); Neutrophil # 8.91 X10^3/uL (2.7-7.7); Neutrophil % 69.5 % (47-70); Platelet Count 363 K/mm3 (150-450); RBC Distribution Width CV 12.1 % (11.6-14.6); RBC Distribution Width SD 36.9 fl (35.1-43.9); Red Blood Count 3.85 M/mm3 (4.2-5.4); White Blood Count 12.8 K/mm3 (4.4-11.0)
[2020-09-09 16:04] LABS: International Normalized Ratio 1.1
[2020-09-09 16:05] LABS: Partial Thromboplast Time 29.1 Seconds (24.1-36.2)
[2020-09-09 16:14] LABS: Fibrinogen 591 mg/dl (203-444)
[2020-09-09 16:25] LABS: Group B Strep DNA By PCR Negative (Negative); Internal Control PASS; Probe Check PASS; Specimen Processing Control PASS
--- NOTE | 2020-09-13 07:21 | OB.TRI.HP_ITS ---
HPI - General HPI Narrative KASSIE HOLMAN, is a 25 F who presents Maternal Data Information FABRIZIO Calculator Estimated Delivery Date Method Current WG Current Estimate 12/13/20 LMP (Certain) 27w 0d # 2 PFSH PFSH Medical History (Updated 09/09/20 @ 14:[address] Ethel Moreno MD) Chronic bronchitis Chronic cough Chronic shortness of breath H/O miscarriage, currently (~10/2019) Vocal cord dysfunction Home Medications albuterol sulfate 2 puff INHALATION Q4H PRN PRN 04/20/19 [History Last Taken 08/15/20 08:00] promethazine 12.5 mg rectal suppository 12.5 mg RC Q6H PRN #12 ea 04/21/20 [Rx Last Taken Unknown] promethazine 12.5 mg tablet 12.5 mg PO TID PRN #60 tab 04/21/20 [Rx Last Taken 09/04/20 08:00] multivitamin no.47-iron fum 27 mg-folate no.1 1 mg-dha 300 mg capsule 1 cap PO DAILY 04/26/20 [History Last Taken 09/06/20 12:00] ondansetron HCl 4 mg tablet 4 mg PO Q4H #60 tablet 06/02/20 [Rx Last Taken 09/06/20 08:00] blood sugar diagnostic #100 each 06/29/20 [Rx Last Taken Unknown] blood-glucose meter #1 each 06/29/20 [Rx Last Taken Unknown] lancets 33 gauge #100 each 06/29/20 [Rx Last Taken Unknown] sertraline [Zoloft] 50 mg PO DAILY 09/07/20 [History Last Taken 09/06/20 12:00] Allergy/AdvReac Type Severity Reaction Status Date / Time No Known Allergies Allergy Verified 09/09/20 10:49 Family History Father Heart disease Surgical History Carpal tunnel syndrome History of bronchoscopy Social History adopted: No household members: significant other housing: house current occupational status: employed and student current occupation: [employer]; [employer]; student- [employer] in [place] pets and animals: Yes sexually active: Yes Smoking Status: Never smoker second hand exposure: Yes alcohol intake: current alcohol intake frequency: holidays/special occasions only substance use type: does not use seatbelt use: always do you feel safe at home: Yes additional social history: BF: Ariana burgos History 2 Elective abortions Hx Para Spontaneous abortions 1 Hx # Term Pregnancies Ectopic pregnancies Hx # Pregnancies Multiple births # of living children Past Pregnancies Del. Date Name GA/Weeks Outcome Route Bth Weight Infant Gen Labor Lgth Anesthesia Del Locatn Provider FOB Unknown 10/2019 S[facility] Delivery Date: ? chemical TrevinArely Visit Details Expected Delivery Route/Plan Labor Preferences- CB/BF classes: [] labor support person: [] labor intervention preferences: [] pain management options preferred: [] cut cord/dad catch: [] : [] PP control planned: [] discussed possible routes of delivery and associated risks: [] special requests: [] Plans flu vaccine: given tdap vaccine: [] rhogam: [] LARC form signed: [] Problem list reviewed and updated with the most current plan of care details and appropriate orders placed. Relevant counseling for the gestational age provided. Continue routine care and follow up unless otherwise noted in visit notes/problem list details OB Flowsheet Initial Weight: 150 lb Date -?-?-?-?-?-?-?-?-?-?-?-?- EGA Weight BP Urine Prot -?-?-?-?-?-?-?-?-?-?-?-?- Glucose FHR FuHt Pres Dilation -?-?-?-?-?-?-?-?-?-?-?-?- Effaced St Visit Note 05/04/20 -?-?-?-?-?-?-?-?-?-?-?-?- 8w 1d 153 lb 6 oz (+3 lb 6 oz) 120/84 -?-?-?-?-?-?-?-?-?-?-?-?- A 170 175 -?-?-?-?-?-?-?-?-?-?-?-?- B A -?--?-?-?-?-?-?-?-?-?-?-?- B -?-?-?-?-?-?-?-?-?-?-?-?- A -?-?-?-?-?-?-?-?-?-?-?-?- B A GP - CRLs 14 and 18mm consistent with LMP. US shows twin peak sign suggesting di-di twin gestation GP - CRLs 14 and 18mm consis tent with LMP. US shows twin peak sign suggesting di-di twin gestation. FHR 170/175 -?-?-?-?-?-?-?-?-?-?-?-?- B 06/01/20 -?-?-?-?-?-?-?-?-?-?-?-?- 12w 1d 155 lb 6 oz (+5 lb 6 oz) 130/80 Negative -?-?-?-?-?-?-?-?-?-?-?-?- Negative A 160 -?-?-?-?-?-?-?-?-?-?-?-?- B 160 A -?-?-?-?-?-?-?-?-?-?-?-?- B -?-?-?-?-?-?-?-?-?-?-?-?- A -?-?-?-?-?-?-?-?-?-?-?-?- B A SM- no vb crmapi ng still nauseated -?-?-?-?-?-?-?-?-?-?-?-?- B 06/16/20 -?-?-?-?-?-?-?-?-?-?-?-?- 14w 2d 158 lb 6 oz (+8 lb 6 oz) 118/60 Negative -?-?-?-?-?-?-?-?-?-?-?-?- Negative A 160 -?-?-?-?-?-?-?-?-?-?-?-?- B 160 A -?-?-?-?-?-?-?-?-?-?-?-?- B -?-?-?-?-?-?-?-?-?-?-?-?- A -?-?-?-?-?-?-?-?-?-?-?-?- B A MH-work in for e pisodes of feeling flushed, dizziness. Better after eats but still struggles with nausea/improving. Reviewed small frequent meals. Refer to hand salter. MH-work in for episodes of f eeling flushed, dizziness. Better after eats but still struggles with nausea/improving. Reviewed small frequent meals. Refer to hand salter. More anxiety-Rx zoloft -?-?-?-?-?-?--?-?-?-?-?-?- B 06/29/20 -?-?-?-?-?-?-?-?-?-?-?-?- 16w 1d 165 lb (+15 lb) 126/82 Negative -?-?-?-?-?-?-?-?-?-?-?-?- Negative A 145 -?-?-?-?-?-?-?-?-?-?-?-?- B 160 A -?-?-?-?-?-?-?-?-?-?-?-?- B -?-?-?-?-?-?-?-?-?-?-?-?- A -?-?-?-?-?-?-?-?-?-?-?-?- B A GP - no cramping or bleeding. Denies complaints. -?-?-?-?-?-?-?-?-?-?-?-?- B 07/04/20 -?-?-?-?-?-?-?-?-?-?-?-?- 16w 6d 162 lb (+12 lb) 110/80 -?-?-?-?-?-?-?-?-?-?-?-?- A 155 -?-?-?-?-?-?-?-?-?-?-?-?- B 150 A -?-?-?-?-?-?-?-?-?-?-?-?- B 0 -?-?-?-?-?-?-?-?-?-?-?-?- A -?-?-?-?-?-?-?-?-?-?-?-?- B A SM- viral GI sym ptosm with nausea vomitijng, cramping no vb lof -?-?-?-?-?-?-?-?-?-?-?-?- B 07/25/20 -?-?-?-?-?-?-?-?-?-?-?-?- 19w 6d 169 lb 6 oz (+19 lb 6 oz) 124/84 118/84 Negative -?-?-?-?-?-?-?-?-?-?-?-?- Negative A 147 -?-?-?-?-?-?-?-?-?-?-?-?- B 150 A Breech -?-?-?-?-?-?-?-?-?-?-?-?- B Transverse -?-?-?-?-?-?-?-?-?-?-?-?- A -?-?-?-?-?-?-?-?-?-?-?-?- B A GP - no LOF, VB, dFM, ctx. FOB not in the picture, but may be there for delivery. Struggling with finances -?-?-?-?-?-?-?-?-?-?-?-?- B 08/15/20 -?-?-?-?-?-?-?-?-?-?-?-?- 22w 6d 171 lb 6 oz (+ lb 6 oz) 110/78 Negative -?-?-?-?-?-?-?-?-?-?-?-?- Negative A 135 -?-?-?-?-?-?-?-?-?-?-?-?- B 145 A Cephalic -?-?-?-?-?-?-?-?-?-?-?-?- B Breech 0 -?-?-?-?-?-?-?-?-?-?-?-?- A -?-?-?-?-?-?-?-?-?-?-?-?- B A GP - no LOF, VB, DFM. Seen at [place] last week due to contractions. Still cramping. Cervix closed. Encouraged increased PO fluids. -?-?-?-?-?-?-?-?-?-?-?-?- B 08/22/20 -?-?-?-?-?-?-?-?-?-?-?-?- 23w 6d 169 lb (+19 lb) 106/62 Negative -?-?-?-?-?-?-?-?-?-?-?-?- Negative A 150 -?-?-?-?-?-?-?-?-?-?-?-?- B 140 A -?-?-?-?-?-?-?-?-?-?-?-?- B -?-?-?-?-?-?-?-?-?-?-?-?- A -?-?-?-?-?-?-?-?-?-?-?-?- B A SM- no vb lof go od fm no regular ctx -?-?-?-?-?-?-?-?-?-?-?-?- B 09/07/20 -?-?-?-?-?-?-?-?-?-?-?-?- 26w 1d 177 lb 11.081 oz (+27 lb 11.081 oz) 126/76 129/75 Negative mg/dl (Nega tive) -?-?-?-?-?-?-?-?-?-?-?-?- A 140 -?-?-?-?-?-?-?-?-?-?-?-?- B 150 A -?-?-?-?-?-?-?-?-?-?-?-?- B 0 -?-?-?-?-?-?-?-?-?-?-?-?- A -?-?-?-?-?-?-?-?-?-?-?-?- B A -?-?-?-?-?-?-?-?-?-?-?-?- B 09/09/20 -?-?-?-?-?-?-?-?-?-?-?-?- 26w 3d 176 lb 4 oz (+26 lb 4 oz) 124/80 Negative -?-?-?-?-?-?-?-?-?-?-?-?- Negative A 135 -?-?-?-?-?-?-?--?-?-?-?-?- B 136 A Breech -?-?-?-?-?-?-?-?-?-?-?-?- B Transverse 1 -?-?-?-?-?-?-?-?-?-?-?-?- 50 A -2 -?-?-?-?-?-?-?-?-?-?-?-?- B A GP - work in for contractions. Seen in triage earlier this week but cx was closed and FFN negative. Sent to triage for BMZ, CL, and IV fluids -?-?-?-?-?-?-?-?-?-?-?-?- B 09/09/20 -?-?-?-?-?-?-?-?-?-?-?-?- 26w 3d 177 lb 4 oz (+27 lb 4 oz) 110/72 115/66 115/66 115/63 115/63 124/73 127/77 127/77 124/70 121/69 121/69 114/57 114/57 -?-?-?-?-?-?-?-?-?-?-?-?- A -?-?-?-?-?-?-?-?-?-?-?-?- B A -?-?-?-?-?-?-?-?-?-?-?-?- B -?-?-?-?-?-?-?-?-?-?-?-?- A -?--?-?-?-?-?-?-?-?-?-?-?- B A -?-?-?-?-?-?-?-?-?-?-?-?- B Assessment & Plan (1) labor: Charges/Coding Procedures Urinary/Genital [id number]: No Charge
--- NOTE | 2020-09-13 07:21 | OB.TRI.NOTE ---
HPI - General HPI Narrative KASSIE HOLMAN, is a 25 F who presents Maternal Data Information FABRIZIO Calculator Estimated Delivery Date Method Current WG Current Estimate 12/13/20 LMP (Certain) 27w 0d # 2 PFSH PFSH Medical History (Updated 09/09/20 @ 14:[address] Ethel Moreno MD) Chronic bronchitis Chronic cough Chronic shortness of breath H/O miscarriage, currently (~10/2019) Vocal cord dysfunction Home Medications albuterol sulfate 2 puff INHALATION Q4H PRN PRN 04/20/19 [History Last Taken 08/15/20 08:00] promethazine 12.5 mg rectal suppository 12.5 mg RC Q6H PRN #12 ea 04/21/20 [Rx Last Taken Unknown] promethazine 12.5 mg tablet 12.5 mg PO TID PRN #60 tab 04/21/20 [Rx Last Taken 09/04/20 08:00] multivitamin no.47-iron fum 27 mg-folate no.1 1 mg-dha 300 mg capsule 1 cap PO DAILY 04/26/20 [History Last Taken 09/06/20 12:00] ondansetron HCl 4 mg tablet 4 mg PO Q4H #60 tablet 06/02/20 [Rx Last Taken 09/06/20 08:00] blood sugar diagnostic #100 each 06/29/20 [Rx Last Taken Unknown] blood-glucose meter #1 each 06/29/20 [Rx Last Taken Unknown] lancets 33 gauge #100 each 06/29/20 [Rx Last Taken Unknown] sertraline [Zoloft] 50 mg PO DAILY 09/07/20 [History Last Taken 09/06/20 12:00] Allergy/AdvReac Type Severity Reaction Status Date / Time No Known Allergies Allergy Verified 09/09/20 10:49 Family History Father Heart disease Surgical History Carpal tunnel syndrome History of bronchoscopy Social History adopted: No household members: significant other housing: house current occupational status: employed and student current occupation: [employer]; [email or web address]; student- [employer] in [place] pets and animals: Yes sexually active: Yes Smoking Status: Never smoker second hand exposure: Yes alcohol intake: current alcohol intake frequency: holidays/special occasions only substance use type: does not use seatbelt use: always do you feel safe at home: Yes additional social history: BF: Ariana burgos History 2 Elective abortions Hx Para Spontaneous abortions 1 Hx # Term Pregnancies Ectopic pregnancies Hx # Pregnancies Multiple births # of living children Past Pregnancies Del. Date Name GA/Weeks Outcome Route Bth Weight Infant Gen Labor Lgth Anesthesia Del Locatn Provider FOB Unknown 10/2019 SAB Delivery Date: ? chemical TrevinArely Visit Details Expected Delivery Route/Plan Labor Preferences- CB/BF classes: [] labor support person: [] labor intervention preferences: [] pain management options preferred: [] cut cord/dad catch: [] : [] PP control planned: [] discussed possible routes of delivery and associated risks: [] special requests: [] Plans flu vaccine: given tdap vaccine: [] rhogam: [] LARC form signed: [] Problem list reviewed and updated with the most current plan of care details and appropriate orders placed. Relevant counseling for the gestational age provided. Continue routine care and follow up unless otherwise noted in visit notes/problem list details OB Flowsheet Initial Weight: 150 lb Date <del>?</del> EGA Weight BP Urine Prot <del>?</del> Glucose FHR FuHt Pres Dilation <del>?</del> Effaced St Visit Note 05/04/20 <del>?</del> 8w 1d 153 lb 6 oz (+3 lb 6 oz) 120/84 <del>?</del> A 170 175 <del>?</del> B A <del>?</del> B <del>?</del> A <del>?</del> B A GP - CRLs 14 and 18mm consistent with LMP. US shows twin peak sign suggesting di-di twin gestation GP - CRLs 14 and 18mm consistent with LMP. US shows twin peak sign suggesting di-di twin gestation. FHR 170/175 <del>?</del> B 06/01/20 <del>?</del> 12w 1d 155 lb 6 oz (+5 lb 6 oz) 130/80 Negative <del>?</del> Negative A 160 <del>?</del> B 160 A <del>?</del> B <del>?</del> A <del>?</del> B A SM- no vb crmaping still nauseated <del>?</del> B 06/16/20 <del>?</del> 14w 2d 158 lb 6 oz (+8 lb 6 oz) 118/60 Negative <del>?</del> Negative A 160 <del>?</del> B 160 A <del>?</del> B <del>?</del> A <del>?</del> B A MH-work in for episodes of feeling flushed, dizziness. Better after eats but still struggles with nausea/improving. Reviewed small frequent meals. Refer to dispensing optician apprentice. MH-work in for episodes of feeling flushed, dizziness. Better after eats but still struggles with nausea/improving. Reviewed small frequent meals. Refer to dispensing optician apprentice. More anxiety-Rx zoloft <del>?</del> B 06/29/20 <del>?</del> 16w 1d 165 lb (+15 lb) 126/82 Negative <del>?</del> Negative A 145 <del>?</del> B 160 A <del>?</del> B <del>?</del> A <del>?</del> B A GP - no cramping or bleeding. Denies complaints. <del>?</del> B 07/04/20 <del>?</del> 16w 6d 162 lb (+12 lb) 110/80 <del>?</del> A 155 <del>?</del> B 150 A <del>?</del> B 0 <del>?</del> A <del>?</del> B A SM- viral GI symptosm with nausea vomitijng, cramping no vb lof <del>?</del> B 07/25/20 <del>?</del> 19w 6d 169 lb 6 oz (+19 lb 6 oz) 124/84 118/84 Negative <del>?</del> Negative A 147 <del>?</del> B 150 A Breech <del>?</del> B Transverse <del>?</del> A <del>?</del> B A GP - no LOF, VB, dFM, ctx. FOB not in the picture, but may be there for delivery. Struggling with finances <del>?</del> B 08/15/20 <del>?</del> 22w 6d 171 lb 6 oz (+21 lb 6 oz) 110/78 Negative <del>?</del> Negative A 135 <del>?</del> B 145 A Cephalic <del>?</del> B Breech 0 <del>?</del> A <del>?</del> B A GP - no LOF, VB, DFM. Seen at [place] last week due to contractions. Still cramping. Cervix closed. Encouraged increased PO fluids. <del>?</del> B 08/22/20 <del>?</del> 23w 6d 169 lb (+19 lb) 106/62 Negative <del>?</del> Negative A 150 <del>?</del> B 140 A <del>?</del> B <del>?</del> A <del>?</del> B A SM- no vb lof good fm no regular ctx <del>?</del> B 09/07/20 <del>?</del> 26w 1d 177 lb 11.081 oz (+27 lb 11.081 oz) 126/76 129/75 Negative mg/dl (Negative) <del>?</del> A 140 <del>?</del> B 150 A <del>?</del> B 0 <del>?</del> A <del>?</del> B A <del>?</del> B 09/09/20 <del>?</del> 26w 3d 176 lb 4 oz (+26 lb 4 oz) 124/80 Negative <del>?</del> Negative A 135 <del>?</del> B 136 A Breech <del>?</del> B Transverse 1 <del>?</del> 50 A -2 <del>?</del> B A GP - work in for contractions. Seen in triage earlier this week but cx was closed and FFN negative. Sent to triage for BMZ, CL, and IV fluids <del>?</del> B 09/09/20 <del>?</del> 26w 3d 177 lb 4 oz (+27 lb 4 oz) 110/72 115/66 115/66 115/63 115/63 124/73 127/77 127/77 124/70 121/69 121/69 114/57 114/57 <del>?</del> A <del>?</del> B A <del>?</del> B <del>?</del> A <del>?</del> B A <del>?</del> B Assessment & Plan (1) labor: Charges/Coding Procedures Urinary/Genital [id number]: No Charge
== END 2020-09-09 16:25 | disposition short-term general hospital (02) ==
LOC: WPOUT 11:40 → WP 11:41
PROVIDERS: Obstetrics & Gynecology; PCP Family Medicine; Referring Provider Obstetrics & Gynecology; Visit Provider Obstetrics & Gynecology
DX: O60.02 Preterm labor without delivery, second trimester (principal); O26.892 Other specified pregnancy related conditions, second trimester; J38.3 Other diseases of vocal cords; Z3A.26 26 weeks gestation of pregnancy
CPT/HCPCS: 96365; 96366 ×2; 36415; 59025; 59050; 76817; 85025; 85384; 85610; 85730; 86850; 86900; 86901; 87081; 87653; 99218; J7120; G0378; J0702

== ENCOUNTER → 2020-09-15 12:57 | Outpatient (CLI) | payer OTHER, MEDICAID, SELFPAY ==
[2020-09-09 14:30] VITALS: BMI 31.4
[2020-09-15 13:25] LABS: Absolute Lymphocyte Count 1.87 X10^3/uL (0.83-4.51); Absolute Neutrophil Count 10.4 X10^3/uL (2.0-7.7); Basophil# 0.03 X10^3/uL; Basophil% 0.2 % (0-1); Eosinophil# 0.12 X10^3/uL; Eosinophils% 0.9 % (0-5); Hematocrit 30.5 % (37-47); Lymphocyte # 1.87 X10^3/ul (0.83-4.51); Lymphocyte % 13.8 % (19-41); Mean Corp Hgb Conc 32.8 g/dL (32-36); Mean Corpuscular Hgb 27.7 pg (27.0-32.0); Mean Corpuscular Volume 84.5 fL (81-99); Mean Platelet Vol. 9.2 fl (6.2-12.0); Monocyte# 0.97 X10^3/uL; Monocyte% 7.1 % (0-10); NRBC Flagged by Analyzer 0 % (0-5); Neutrophil % 76.6 % (47-70); Platelet Count 336 K/mm3 (150-450); RBC Distribution Width CV 12.4 % (11.6-14.6); RBC Distribution Width SD 37.5 fl (35.1-43.9); Red Blood Count 3.61 M/mm3 (4.2-5.4); White Blood Count 13.6 K/mm3 (4.4-11.0)
[2020-09-15 13:44] LABS: Glucose Challenge Gest 1H 50g 129 mg/dL (70-140)
[2020-09-15 14:07] LABS: Syphilis Antibodies Non-reactive
== END ==
PROVIDERS: PCP Family Medicine; Referring Provider Obstetrics & Gynecology; Visit Provider Obstetrics & Gynecology
DX: Z34.90 Encounter for supervision of normal pregnancy, unspecified, unspecified trimester (principal)
CPT/HCPCS: 36415; 82950; 85025; 86780; 86850; 86870; 86900; 86901

== ENCOUNTER 2020-09-24 23:50 | Outpatient (CLI) | payer OTHER, MEDICAID, SELFPAY ==
[2020-09-15 13:26] VITALS: BMI 31.4
[2020-09-24 23:57] VITALS: BMI 31.2
[2020-09-25] VITALS (37 sets, daily range): BP systolic 125–139; BP diastolic 77–91; PULSE 92–113; TEMP 37.1; O2SAT 89–100
[2020-09-25 00:55] LABS: Bacteria 0 SEEN /hpf (None Seen); Mucous, Urine 0 SEEN /hpf (<or=2+); Red Blood Cells-Urine 0 SEEN /hpf (0-5); White Blood Cells 0 SEEN /hpf (0-5)
[2020-09-25 00:56] LABS: Color, Urine Yellow (Yellow); Glucose, Dipstick Normal (Normal); Ketone-Dipstick Negative (Negative); Leukocyte Esterase-Dipstick Negative /ul (Negative); Nitrite-Dipstick Negative (Negative); Occult Blood-Urine Negative /ul (Negative); Protein-Dipstick Negative (Negative); Urine Bilirubin Dipstick Negative (Negative); Urine Clarity Clear (Clear); Urine Urobilinogen Normal (Normal)
[2020-09-25 01:02] LABS: Squamous Epithelial Cells - UA 0-5 SEEN /hpf (5-10)
[2020-09-25] MEDS: Terbutaline 1 MG/ML Vial 0.25 MG SC (01:35)
--- NOTE | 2020-09-25 08:08 | NURSING ---
Discharge order entered on behalf of Gissell Lino RN who received the order, but forgot to enter it on her shift.
--- NOTE | 2020-09-25 21:30 | OB.TRI.PN ---
Progress Notes Date of Service: 09/24/20 Progress Note: Threatened labor patient seen for contractions and lower pelvic pressure. No cervical change since previous exam. Patient kept for several hours and monitored noted to have intermittent contractions reassuring heart tones x2 patient did not make any cervical change and was stable for discharge to home Laboratory Studies: Laboratory Tests 09/25/20 Range/Units 00:45 Urine Color Yellow (Yellow) Urine Clarity Clear (Clear) Urine pH 6.0 (5.0 - 8.0) Ur Specific [place] 1.020 (1.002-1.030) Urine Protein Negative (Negative) mg/dl Urine Glucose (UA) Normal (Normal) mg/dl Urine Ketones Negative (Negative) mg/dl Urine Occult Blood Negative (Negative) /ul Urine Nitrite Negative (Negative) Urine Bilirubin Negative (Negative) mg/dL Urine Urobilinogen Normal (Normal) mg/dl Ur Leukocyte Esterase Negative (Negative) /ul Urine RBC 0 SEEN (0-5) /hpf Urine WBC 0 SEEN (0-5) /hpf Ur Squamous Epith Cells 0-5 SEEN (5-10) /hpf Urine Bacteria 0 SEEN (None Seen) /hpf Urine Mucus 0 SEEN (<or=2+) /hpf
== END 2020-09-25 03:50 | disposition home or self-care (01) ==
LOC: WPOUT 23:57 → WP 23:57
PROVIDERS: PCP Family Medicine; Visit Provider Obstetrics & Gynecology
DX: O47.00 False labor before 37 completed weeks of gestation, unspecified trimester (principal); Z3A.00 Weeks of gestation of pregnancy not specified
CPT/HCPCS: 59025; 59050; 81001; 96372; 99218; G0378

== ENCOUNTER 2020-10-07 10:50 | Outpatient (CLI) | payer OTHER, MEDICAID, SELFPAY ==
[2020-09-26 15:34] VITALS: BMI 31.2
[2020-10-07] VITALS (51 sets, daily range): BP systolic 124–134; BP diastolic 64–89; PULSE 82–111; RESP 16–18; TEMP 36.4–37.1; O2SAT 94–100; BMI 31.6
[2020-10-07 12:09] LABS: Bacteria 0 SEEN /hpf (None Seen); Mucous, Urine 0 SEEN /hpf (<or=2+); Red Blood Cells-Urine 0 SEEN /hpf (0-5); White Blood Cells 0 SEEN /hpf (0-5)
[2020-10-07 12:13] LABS: Color, Urine Yellow (Yellow); Glucose, Dipstick Normal (Normal); Ketone-Dipstick Negative (Negative); Leukocyte Esterase-Dipstick 25 /ul (Negative); Nitrite-Dipstick Negative (Negative); Occult Blood-Urine Negative /ul (Negative); Protein-Dipstick 15 mg/dl (Negative); Specific Gravity, Urine 1.015 (1.002-1.030); Urine Bilirubin Dipstick Negative (Negative); Urine Clarity Sl. Cloudy (Clear); Urine Urobilinogen Normal (Normal)
[2020-10-07 12:19] LABS: Squamous Epithelial Cells - UA 10-25 SEEN /hpf (5-10)
[2020-10-07] MEDS: Lactated Ringers 1,000 ML 999 ML IV (12:40)
[2020-10-07 12:46] LABS: Fetal Fibronectin POSITIVE
[2020-10-07] MEDS: Acetaminophen 500 MG Tablet 1000 MG PO (12:55)
[2020-10-07] MEDS: Betamethasone/Betamethasone 30 MG/5 ML Vial 12 MG IM (13:18)
[2020-10-07 13:26] LABS: Absolute Neutrophil Count 8.8 X10^3/uL (2.0-7.7); Basophil# 0.02 X10^3/uL; Basophil% 0.2 % (0-1); Eosinophils% 0.8 % (0-5); Hematocrit 30.9 % (37-47); Hemoglobin 10.3 g/dL (12.0-15.0); Lymphocyte % 15.5 % (19-41); Mean Corp Hgb Conc 33.3 g/dL (32-36); Mean Corpuscular Hgb 27.1 pg (27.0-32.0); Mean Corpuscular Volume 81.3 fL (81-99); Mean Platelet Vol. 9.7 fl (6.2-12.0); Monocyte% 10.6 % (0-10); NRBC Flagged by Analyzer 0 % (0-5); Neutrophil # 8.83 X10^3/uL (2.7-7.7); Neutrophil % 72.2 % (47-70); Platelet Count 359 K/mm3 (150-450); RBC Distribution Width CV 12.3 % (11.6-14.6); RBC Distribution Width SD 35.8 fl (35.1-43.9); White Blood Count 12.2 K/mm3 (4.4-11.0)
[2020-10-07] MEDS: Ringers, Lactated 1,000 ML IV.SOLN. 1000 ML IV (14:45)
[2020-10-07] MEDS: Magnesium Sulfate 4gm/100mL 4 GM/100 ML IV.SOLN. IV (14:45)
[2020-10-07] MEDS: Magnesium Sulfate 4gm/100mL 2 GM/50 ML IV.SOLN. IV (15:05)
[2020-10-07] MEDS: Indomethacin 25 MG Capsule 50 MG PO (15:19)
[2020-10-07] MEDS: Magnesium Sulfate 20 GM/500 ML BAG IV (15:23)
--- NOTE | 2020-10-07 17:10 | HP.PCM.OB_ITS ---
HPI - General HPI Narrative KASSIE HOLMAN, is a 25 F who presents with labor twins. fibronectin is positive today and patient has made cervical change from previous exams now 1-2 50 softer and -2. She denies any vaginal bleeding or loss of fluid admits some decreased movement also. She is very uncomfortable with cont ractions. Infants are both breech on ultrasound. Maternal Data Information FABRIZIO Calculator Estimated Delivery Date Method Current WG Current Estimate 12/13/20 LMP (Certain) 30w 3d # 2 PFSH PFSH Medical History (Updated 10/07/20 @ 17:[address] Nevaeh Montague MD) Chronic bronchitis Chronic cough Chronic shortness of breath H/O miscarriage, currently (~10/2019) Vocal cord dysfunction Home Medications albuterol sulfate 2 puff INHALATION Q4H PRN PRN 04/20/19 [History Last Taken 08/15/20 08:00] multivitamin no.47-iron fum 27 mg-folate no.1 1 mg-dha 300 mg capsule 1 cap PO DAILY 04/26/20 [History Last Taken 09/06/20 12:00] blood sugar diagnostic #100 each 06/29/20 [Rx Last Taken Unknown] blood-glucose meter #1 each 06/29/20 [Rx Last Taken Unknown] lancets 33 gauge #100 each 06/29/20 [Rx Last Taken Unknown] sertraline [Zoloft] 50 mg PO DAILY 09/07/20 [History Last Taken 09/06/20 12:00] nifedipine 30 mg tablet,extended release 24 hr 30 mg PO DAILY #30 tab 09/26/20 [Rx Last Taken Unknown] Allergy/AdvReac Type Severity Reaction Status Date / Time No Known Allergies Allergy Verified 09/09/20 10:49 Family History Father Heart disease Surgical History Carpal tunnel syndrome History of bronchoscopy Social History adopted: No household members: significant other housing: house current occupational status: employed and student current occupation: [email or web address]; student- [employer] in [employer] [facility] pets and animals: Yes sexually active: Yes Smoking Status: Never smoker second hand exposure: Yes alcohol intake: current alcohol intake frequency: holidays/special occasions only substance use type: does not use seatbelt use: always do you feel safe at home: Yes additional social history: BF: Ariana burgos History 2 Elective abortions Hx Para Spontaneous abortions 1 Hx # Term Pregnancies Ectopic pregnancies Hx # Pregnancies Multiple births # of living children Past Pregnancies Del. Date Name GA/Weeks Outcome Route Bth Weight Infant Gen Labor Lgth Anes th esia Del Locatn Provider FOB Unknown 10/2019 SAB Delivery Date: ? chemical Arely Zhong Visit Details Expected Delivery Route/Plan Labor Preferences- CB/BF classes: [] labor support person: [] labor intervention preferences: [] pain management options preferred: [] cut cord/dad catch: [] : [] PP control planned: [] discussed possible routes of delivery and associated risks: [] special requests: [] Plans flu vaccine: given tdap vaccine: [] rhogam: [] LARC form signed: [] Problem list reviewed and updated with the most current plan of care details and appropriate orders placed. Relevant counseling for the gestational age provided. Continue routine care and follow up unless otherwise noted in visit notes/problem list details OB Flowsheet Initial Weight: 150 lb Date -?-?-?-?-?-?-?-?-?-?-?-?- EGA Weight BP Urine Prot -?-?-?-?-?-?-?-?-?-?-?-?- Glucose FHR FuHt Pres Dilation -?-?-?-?-?-?-?-?-?-?-?-?- Effaced St Visit Note 05/04/20 -?-?-?-?-?-?-?-?-?-?-?-?- 8w 1d 153 lb 6 oz (+3 lb 6 oz) 120/84 -?-?-?-?-?-?-?-?-?-?-?-?- A 170 175 -?-?-?-?-?-?-?-?-?-?-?-?- B A -?-?-?-?-?-?-?-?-?-?-?-?- B -?-?-?-?-?-?-?-?-?-?-?-?- A -?-?-?-?-?-?-?-?-?-?-?-?- B A GP - CRLs 14 and 18mm consistent with LMP. US shows twin peak sign suggesting di-di twin gestation GP - CRLs 14 and 18mm consis tent with LMP. US shows twin peak sign suggesting di-di twin gestation. FHR 170/175 -?-?-?-?-?-?-?-?-?-?-?-?- B 06/01/20 -?-?-?-?-?-?-?-?-?-?-?-?- 12w 1d 155 lb 6 oz (+5 lb 6 oz) 130/80 Negative -?-?-?-?-?-?-?-?-?-?-?-?- Negative A 160 -?-?-?-?-?-?-?-?-?-?-?-?- B 160 A -?-?-?-?-?-?-?-?-?-?-?-?- B -?-?-?-?-?-?-?-?-?-?-?-?- A -?-?-?-?-?-?-?-?-?-?-?-?- B A SM- no vb crmapi ng still nauseated -?-?-?-?-?-?-?-?-?-?-?-?- B 06/16/20 -?-?-?-?-?-?-?-?-?-?-?-?- 14w 2d 158 lb 6 oz (+8 lb 6 oz) 118/60 Negative -?-?-?-?-?-?-?-?-?-?-?-?- Negative A 160 -?-?-?-?-?-?-?-?-?-?-?-?- B 160 A -?-?-?-?-?-?-?-?-?-?-?-?- B -?-?-?-?-?-?-?-?-?-?-?-?- A -?-?-?-?-?-?-?-?-?-?-?-?- B A MH-work in for e pisodes of feeling flushed, dizziness. Better after eats but still struggles with nausea/improving. Reviewed small frequent meals. Refer to reel winder. MH-work in for episodes of f eeling flushed, dizziness. Better after eats but still struggles with nausea/improving. Reviewed small frequent meals. Refer to reel winder. More anxiety-Rx zoloft -?-?-?-?-?-?-?-?-?-?-?-?- B 06/29/20 -?-?-?-?-?-?-?-?-?-?--?-?- 16w 1d 165 lb (+15 lb) 126/82 Negative -?-?-?-?-?-?-?-?-?-?-?-?- Negative A 145 -?-?-?-?-?-?-?-?-?-?-?-?- B 160 A -?-?-?-?-?-?-?-?-?-?-?-?- B -?-?-?-?-?-?-?-?-?-?-?-?- A -?-?-?-?-?-?-?-?-?-?-?-?- B A GP - no cramping or bleeding. Denies complaints. -?-?-?-?-?-?-?-?-?-?-?-?- B 07/04/20 -?-?-?-?-?-?-?-?-?-?-?-?- 16w 6d 162 lb (+12 lb) 110/80 -?-?-?-?-?-?-?-?-?-?-?-?- A 155 -?-?-?-?-?-?-?-?-?-?-?-?- B 150 A -?-?-?-?-?-?-?-?-?-?-?-?- B 0 -?-?-?-?-?-?-?-?-?-?-?-?- A -?-?-?-?-?-?-?-?-?-?-?-?- B A SM- viral GI sym ptosm with nausea vomitijng, cramping no vb lof -?-?-?-?-?-?-?-?-?-?-?-?- B 07/25/20 -?-?-?-?-?-?-?-?-?-?-?-?- 19w 6d 169 lb 6 oz (+19 lb 6 oz) 124/84 118/84 Negative -?-?-?-?-?-?-?-?-?-?-?-?- Negative A 147 -?-?-?-?-?-?-?-?-?-?-?-?- B 150 A Breech -?-?-?-?-?-?-?-?-?-?-?-?- B Transverse -?-?-?-?-?-?-?-?-?-?-?-?- A -?-?-?-?-?-?-?-?-?-?-?-?- B A GP - no LOF, VB, dFM, ctx. FOB not in the picture, but may be there for delivery. Struggling with finances -?-?-?-?-?-?-?-?-?-?-?-?- B 08/15/20 -?-?-?-?-?-?-?-?-?-?-?-?- 22w 6d 171 lb 6 oz (+ lb 6 oz) 110/78 Negative -?-?-?--?-?-?-?-?-?-?-?-?- Negative A 135 -?-?-?-?-?-?-?-?-?-?-?-?- B 145 A Cephalic -?-?-?-?-?-?-?-?-?-?-?-?- B Breech 0 -?-?-?-?-?-?-?-?-?-?-?-?- A -?-?-?-?-?-?-?-?-?-?-?-?- B A GP - no LOF, VB, DFM. Seen at [facility] last week due to contractions. Still cramping. Cervix closed. Encouraged increased PO fluids. -?-?-?-?--?-?-?-?-?-?-?-?- B 08/22/20 -?-?-?-?-?-?-?-?-?-?-?-?- 23w 6d 169 lb (+19 lb) 106/62 Negative -?-?-?-?-?-?-?-?-?-?-?-?- Negative A 150 -?-?-?-?-?-?-?-?-?-?-?-?- B 140 A -?-?-?-?-?-?-?-?-?-?-?-?- B -?-?-?-?-?-?-?-?-?-?-?-?- A -?-?-?-?-?-?-?-?-?-?-?-?- B A SM- no vb lof go od fm no regular ctx -?-?-?-?-?-?-?-?-?-?-?-?- B 09/07/20 -?-?-?-?-?-?-?-?-?-?-?-?- 26w 1d 177 lb 11.081 oz (+27 lb 11.081 oz) 126/76 129/75 Negative mg/dl (Nega tive) -?-?-?-?-?-?-?-?-?-?-?-?- A 140 -?-?-?-?-?-?-?-?-?-?-?-?- B 150 A -?-?-?-?-?-?-?-?-?-?-?-?- B 0 -?-?-?-?-?-?-?-?-?-?-?-?- A -?-?-?-?-?-?-?-?-?-?-?-?- B A -?-?-?-?-?-?-?-?-?-?-?-?- B 09/09/20 -?-?-?-?-?-?-?-?-?-?-?-?- 26w 3d 176 lb 4 oz (+26 lb 4 oz) 124/80 Negative -?-?-?-?-?-?-?-?-?-?-?-?- Negative A 135 -?-?-?-?-?-?-?-?-?-?-?-?- B 136 A Breech -?-?-?-?-?--?-?-?-?-?-?-?- B Transverse 1 -?-?-?-?-?-?-?-?-?-?-?-?- 50 A -2 -?-?-?-?-?-?-?-?-?-?-?-?- B A GP - work in for contractions. Seen in triage earlier this week but cx was closed and FFN negative. Sent to triage for BMZ, CL, and IV fluids -?-?-?-?-?-?-?-?-?-?-?-?- B 09/09/20 -?-?-?-?-?-?-?-?-?-?-?-?- 26w 3d 177 lb 4 oz (+27 lb 4 oz) 110/72 115/66 115/66 115/63 115/63 124/73 127/77 127/77 124/70 121/69 121/69 114/57 114/57 -?-?-?-?-?-?-?-?-?-?-?-?- A -?-?-?-?-?-?-?-?-?-?-?-?- B A -?-?-?-?-?-?-?-?-?-?-?-?- B -?-?-?-?-?-?-?-?-?-?-?-?- A -?-?-?-?-?-?-?-?-?-?-?-?- B A -?-?-?-?-?-?-?-?-?-?-?-?- B 09/15/20 -?-?-?-?-?-?-?-?-?-?-?-?- 27w 2d 174 lb (+24 lb) 114/70 -?-?-?-?-?-?-?-?-?-?-?-?- A 145 -?-?-?-?-?-?--?-?-?-?-?-?- B 145 A Cephalic -?-?-?-?-?-?-?-?-?-?-?-?- B Breech -?-?-?-?-?-?-?-?-?-?-?-?- A -?-?-?-?-?-?-?-?-?-?-?-?- B A SM- no vb lof go od fm no reuglar ctx, discharged home from saturday, got rhogam and bmz x 2, still 1 cm -?-?-?-?-?-?-?-?-?-?-?-?- B 09/26/20 -?-?-?-?-?-?-?-?-?-?-?-?- 28w 6d 134/80 Negative -?-?-?-?-?-?-?-?-?-?-?-?- Negative A 145 -?-?-?-?-?-?-?-?-?-?-?-?- B 145 A -?-?-?-?-?-?-?-?-?-?-?-?- B -?-?-?-?-?-?-?-?-?-?-?--?- A -?-?-?-?-?-?-?-?-?-?-?-?- B A SM- no vb lof so me fm still having irregular contractions, discussed procardia for symptoms relief not latency -?-?-?-?-?-?-?-?-?-?-?-?- B 10/07/20 -?-?-?-?-?-?-?-?-?-?-?-?- 30w 3d 179 lb (+29 lb) 126/74 126/80 134/81 134/81 124/64 124/64 128/68 128/68 134/85 134/85 134/89 133/82 128/82 128/82 133/85 131/82 128/77 15 mg/dl (Negative) H -?-?-?-?-?-?-?-?-?-?-?-?- A -?-?-?-?-?-?-?-?-?-?-?-?- B A -?-?-?-?-?-?-?-?-?-?-?-?- B -?-?-?-?-?-?-?-?-?-?-?-?- A -?-?-?-?-?-?-?-?-?-?-?-?- B A -?-?-?-?-?-?-?-?-?-?-?-?- B NST FHR Rate Baby A Baseline: 140 Variability:: Moderate Accelerations:: 15 x 15 Decelerations:: None NST Reactive:: Yes FHR Category:: Category I Uterine Activity:: regular q 2-4 FHR Rate Baby B Baseline: 130 Variability:: Moderate Accelerations:: 15 x 15 Decelerations:: None NST Reactive:: Yes FHR Category:: Category I ROS Constitutional Constitutional: Reports systems reviewed and no addt'l complaints, except as documented and as per HPI ENT HEENT: Reports systems reviewed and no addt'l complaints, except as documented Cardiovascular Cardiovascular: Reports systems reviewed and no addt'l complaints, except as documented Respiratory/Chest Respiratory/Chest: Reports systems reviewed and no addt'l complaints, except as documented Gastrointestinal Gastrointestinal: Reports as per HPI Genitourinary Genitourinary: Reports as per HPI Musculoskeletal Musculoskeletal: Reports systems reviewed and no addt'l complaints, except as documented Integumentary Integumentary: Reports systems reviewed and no addt'l complaints, except as documented Neurologic Neurologic: Reports systems reviewed and no addt'l complaints, except as documented Vital Signs Vital Signs Vital Signs: 10/07/20 11:15 10/07/20 11:34 10/07/20 11:38 Temperature 98.4 F Temperature Source Tympanic Pulse Rate 100 104 H Respiratory Rate Respiratory Effort Respiratory Depth Respiratory Pattern Blood Pressure 126/74 H Blood Pressure Mean BP Systolic 126 BP Diastolic 74 Blood Pressure Source Blood Pressure Position Blood Pressure Location Pulse Ox 97 97 Oxygen Delivery Method 10/07/20 11:43 10/07/20 11:48 10/07/20 13:00 Temperature 98.8 F Temperature Source Tympanic Pulse Rate 98 111 H Respiratory Rate Respiratory Effort Respiratory Depth Respiratory Pattern Blood Pressure Blood Pressure Mean BP Systolic BP Diastolic Blood Pressure Source Blood Pressure Position Blood Pressure Location Pulse Ox 98 99 98 Oxygen Delivery Method 10/07/20 13:01 10/07/20 14:44 10/07/20 14:45 Temperature 98.4 F Temperature Source Temporal Pulse Rate 96 100 88 Respiratory Rate 18 Respiratory Effort Normal Respiratory Depth Normal Respiratory Pattern Normal Blood Pressure 126/80 H 134/81 H Blood Pressure Mean 98 BP Systolic 126 BP Diastolic 80 Blood Pressure Source Monitor Blood Pressure Position Sitting Blood Pressure Location Left Arm Pulse Ox 99 100 99 Oxygen Delivery Method Room Air 10/07/20 14:46 10/07/20 14:49 10/07/20 14:54 Temperature Temperature Source Pulse Rate 94 95 104 H Respiratory Rate Respiratory Effort Respiratory Depth Respiratory Pattern Blood Pressure 134/81 H Blood Pressure Mean BP Systolic 134 BP Diastolic 81 Blood Pressure Source Blood Pressure Position Blood Pressure Location Pulse Ox 98 97 Oxygen Delivery Method 10/07/20 14:59 10/07/20 15:00 10/07/20 15:01 Temperature 97.8 F Temperature Source Temporal Pulse Rate 92 93 88 Respiratory Rate 18 Respiratory Effort Normal Respiratory Depth Normal Respiratory Pattern Normal Blood Pressure 124/64 H 124/64 H Blood Pressure Mean 84 BP Systolic 124 BP Diastolic 64 Blood Pressure Source Monitor Blood Pressure Position Semi-Fowlers Blood Pressure Location Left Arm Pulse Ox 98 96 Oxygen Delivery Method Room Air 10/07/20 15:04 10/07/20 15:09 10/07/20 15:14 Temperature Temperature Source Pulse Rate 96 98 93 Respiratory Rate Respiratory Effort Respiratory Depth Respiratory Pattern Blood Pressure Blood Pressure Mean BP Systolic BP Diastolic Blood Pressure Source Blood Pressure Position Blood Pressure Location Pulse Ox 98 97 97 Oxygen Delivery Method 10/07/20 15:15 10/07/20 15:16 10/07/20 15:19 Temperature 97.5 F L Temperature Source Temporal Pulse Rate 97 93 104 H Respiratory Rate 16 Respiratory Effort Normal Respiratory Depth Normal Respiratory Pattern Normal Blood Pressure 128/68 H 128/68 H Blood Pressure Mean 88 BP Systolic 128 BP Diastolic 68 Blood Pressure Source Monitor Blood Pressure Position Sitting Blood Pressure Location Left Arm Pulse Ox 98 98 Oxygen Delivery Method Room Air 10/07/20 15:24 10/07/20 15:29 10/07/20 15:30 Temperature 97.5 F L Temperature Source Temporal Pulse Rate 104 H 100 91 Respiratory Rate 18 Respiratory Effort Respiratory Depth Respiratory Pattern Blood Pressure 134/85 H Blood Pressure Mean 101 BP Systolic BP Diastolic Blood Pressure Source Monitor Blood Pressure Position Sitting Blood Pressure Location Left Arm Pulse Ox 98 98 98 Oxygen Delivery Method Room Air 10/07/20 15:31 10/07/20 15:32 10/07/20 15:34 Temperature Temperature Source Pulse Rate 91 96 97 Respiratory Rate Respiratory Effort Respiratory Depth Respiratory Pattern Blood Pressure 134/85 H 134/89 H Blood Pressure Mean BP Systolic 134 134 BP Diastolic 85 89 Blood Pressure Source Blood Pressure Position Blood Pressure Location Pulse Ox 98 Oxygen Delivery Method 10/07/20 15:39 10/07/20 15:44 10/07/20 15:46 Temperature Temperature Source Pulse Rate 86 92 93 Respiratory Rate Respiratory Effort Respiratory Depth Respiratory Pattern Blood Pressure 133/82 H Blood Pressure Mean BP Systolic 133 BP Diastolic 82 Blood Pressure Source Blood Pressure Position Blood Pressure Location Pulse Ox 97 98 Oxygen Delivery Method 10/07/20 15:49 10/07/20 15:54 10/07/20 15:59 Temperature Temperature Source Pulse Rate 92 96 90 Respiratory Rate Respiratory Effort Respiratory Depth Respiratory Pattern Blood Pressure Blood Pressure Mean BP Systolic BP Diastolic Blood Pressure Source Blood Pressure Position Blood Pressure Location Pulse Ox 97 97 97 Oxygen Delivery Method 10/07/20 16:00 10/07/20 16:01 10/07/20 16:04 Temperature 97.9 F Temperature Source Temporal Pulse Rate 93 84 90 Respiratory Rate 18 Respiratory Effort Normal Respiratory Depth Normal Respiratory Pattern Normal Blood Pressure 128/82 H 128/82 H Blood Pressure Mean 97 BP Systolic 128 BP Diastolic 82 Blood Pressure Source Monitor Blood Pressure Position Semi-Fowlers Blood Pressure Location Left Arm Pulse Ox 97 97 Oxygen Delivery Method Room Air 10/07/20 16:08 10/07/20 16:13 10/07/20 16:16 Temperature Temperature Source Pulse Rate 92 89 83 Respiratory Rate Respiratory Effort Respiratory Depth Respiratory Pattern Blood Pressure 133/85 H Blood Pressure Mean BP Systolic 133 BP Diastolic 85 Blood Pressure Source Blood Pressure Position Blood Pressure Location Pulse Ox 97 98 Oxygen Delivery Method 10/07/20 16:18 10/07/20 16:23 10/07/20 16:28 Temperature Temperature Source Pulse Rate 84 89 88 Respiratory Rate Respiratory Effort Respiratory Depth Respiratory Pattern Blood Pressure Blood Pressure Mean BP Systolic BP Diastolic Blood Pressure Source Blood Pressure Position Blood Pressure Location Pulse Ox 97 97 98 Oxygen Delivery Method 10/07/20 16:31 10/07/20 16:33 10/07/20 16:38 Temperature Temperature Source Pulse Rate 88 90 87 Respiratory Rate Respiratory Effort Respiratory Depth Respiratory Pattern Blood Pressure 131/82 H Blood Pressure Mean BP Systolic 131 BP Diastolic 82 Blood Pressure Source Blood Pressure Position Blood Pressure Location Pulse Ox 98 98 Oxygen Delivery Method 10/07/20 16:43 10/07/20 16:46 10/07/20 16:48 Temperature Temperature Source Pulse Rate 91 82 93 Respiratory Rate Respiratory Effort Respiratory Depth Respiratory Pattern Blood Pressure 128/77 H Blood Pressure Mean BP Systolic 128 BP Diastolic 77 Blood Pressure Source Blood Pressure Position Blood Pressure Location Pulse Ox 97 97 Oxygen Delivery Method 10/07/20 16:53 10/07/20 16:58 Temperature Temperature Source Pulse Rate 83 84 Respiratory Rate Respiratory Effort Respiratory Depth Respiratory Pattern Blood Pressure Blood Pressure Mean BP Systolic BP Diastolic Blood Pressure Source Blood Pressure Position Blood Pressure Location Pulse Ox 97 98 Oxygen Delivery Method Weight Weight: 179 lb Body Mass Index (BMI) 31.6 Physical Exam Const alert, oriented x3 and no apparent distress HEENT Head and Scalp: normocephalic and atraumatic Neck full ROM and no lymphadenopathy Chest inspection of chest normal Resp normal respiratory effort GI GI Narrative: gravid, abdomen nontender, AGA Manual OB Exam: dilated, effaced and station Labs Labs Labs: Blood Type O NEGATIVE Antibody Screen POSITIVE H Hct 30.9 % (37-47) L Hgb 10.3 g/dL (12.0-15.0) L Obstetrics US Syphilis Total Ab Non-reactive Rubella IgG Antibody Reactive (Nonreactive) Hep Bs Antigen Non-Reactive (Nonreactive) Neisseria gonorrhoeae DNA ([place]) Negative (Negative) HIV 1&2 Antibody Non-Reactive (Nonreactive) Glucose 1 Hr 50 gm 129 mg/dL (70-140) Group B Strep DNA Negative (Negative) Miscellaneous Test Assessment & Plan (1) labor: (2) Rh negative status during : QUALIFIERS: Trimester: second trimester Qualified Code(s): O26.892 - Other specified related conditions, second trimester; Z67.91 - Unspecified blood type, Rh negative COMMENT: rhogam PRN and 28 weeks, given on 09/09/20 at [facility] (3) Hypoglycemia: COMMENT: refer to reel winder (4) Dichorionic diamniotic twin gestation: QUALIFIERS: Trimester: second trimester Qualified Code(s): O30.042 - Twin , dichorionic/diamniotic, second trimester COMMENT: Growths q4w in third trimester confirmed Di at 4/5 MFM US, nl NT for both, growth @24 wk nl (5) Anxiety: COMMENT: currently in nursing school, working 2 jobs- feels that her anxiety has increased, discussed at [facility]. Feels like situational. 06/16 start zoloft (6) Supervision of normal : QUALIFIERS: Normal : normal first Trimester: second trimester Qualified Code(s): Z34.02 - Encounter for supervision of normal first , second trimester COMMENT: PRR (RPR) FABRIZIO 12/13/20 BF: Scott (7) : QUALIFIERS: Weeks of gestation: 28 weeks Qualified Code(s): Z3A.28 - 28 weeks gestation of COMMENT: desires genetic testing, declines carrier. GBS neg PLAN: indocin, magnesium sulfate, ampicillin, transport to [facility] Charges/Coding Multi Select Codes Visit Charges Office Visit/Consults: 13892 OV L3 Est Urinary/Genital Urinary/Genital CPT Codes: 39541-22 non-stress test Interp
--- NOTE | 2020-10-07 17:14 | OP.PCM_ITS ---
Assessment & Plan (1) labor: COMMENT: transport to [facility] again 10/07. rescue steroids given 10/07. 10/08. Maternal Data Information FABRIZIO Calculator Estimated Delivery Date Method Current WG Current Estimate 12/13/20 LMP (Certain) 30w 3d # 2
== END 2020-10-07 17:20 | disposition short-term general hospital (02) ==
LOC: WPOUT 11:02 → WP 11:02
PROVIDERS: PCP Family Medicine; Visit Provider Obstetrics & Gynecology
DX: O60.03 Preterm labor without delivery, third trimester (principal); O26.893 Other specified pregnancy related conditions, third trimester; E16.2 Hypoglycemia, unspecified; Z67.91 Unspecified blood type, Rh negative; Z3A.30 30 weeks gestation of pregnancy
CPT/HCPCS: 96365; 96366 ×2; 96367 ×4; 59025; 59050; 81001; 82731; 85025; 87086; 87088; 99218; J7120; G0378; J0702

== ENCOUNTER → 2020-11-28 17:06 | Outpatient (CLI) | payer MEDICAID, SELFPAY ==
[2020-12-01 15:59] LABS: HPV Reflexed? NOT INDICATED
== END ==
PROVIDERS: PCP Family Medicine; Referring Provider Obstetrics & Gynecology; Visit Provider Obstetrics & Gynecology
DX: Z12.4 Encounter for screening for malignant neoplasm of cervix (principal)
CPT/HCPCS: 88175; G0145

== ENCOUNTER → 2024-03-19 | Outpatient (CLI) | payer MEDICAID, SELFPAY ==
[2024-03-24 08:35] LABS: HPV Reflexed? NOT INDICATED
== END | disposition home or self-care (01) ==
LOC: LABSPEC 14:00
PROVIDERS: PCP Family Medicine; Referring Provider Nurse Practitioner Family; Visit Provider Nurse Practitioner Family
DX: Z12.4 Encounter for screening for malignant neoplasm of cervix (principal)
CPT/HCPCS: 88175; G0145